=== PATIENT | male | born 1975 | race Caucasian/White ===

== ENCOUNTER 2024-11-22 14:17 | Inpatient (IN) | payer BC, SELFPAY ==
[2024-11-22] VITALS (11 sets, daily range): BP systolic 116–195; BP diastolic 64–121; BMI 42.4
--- NOTE | 2024-11-22 15:04 | HPS.HSE ---
Family Physician
-
Family Physician: Zander Parsons MD
Chief Complaint
-
NSTEMI
History of Present Illness
49-year-old [id number] male presented to [facility] on 11/22/2024 from urgent care center. Patient had been experiencing chest burning intermittently since last Thursday and associated with cough. While at urgent care
center, blood pressure noted to be extremely high and patient referred to [facility] emergency room. Patient ruled in for NSTEMI by troponin (max 261) and IV heparin initiated. Patient developed chest pain during the night and was brought
to the catheterization lab on 11/22 where he was found to have triple-vessel coronary disease with chronic total occlusion of RCA. Patient transferred to [facility] today. Right radial TR band intact. Patient currently pain-free but remains
hypertensive.
Medical History
Past Medical History
Past Medical History: Reports HTN and Other (Class III obesity; gout from HTCZ (last flare 5 months ago))
Past Surgical History: Reports Appendectomy, Orthopedic (R arm surgery) and Other (gastric sleeve 2016)
Social History
Tobacco: Non-smoker
Alcohol: None
Drug: None
Personal:
Living: With Family
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
Family History
Family History: Early CAD (F-CABG in his 40s)
Allergies / Home Medications
Allergies reflects when Allergies were last updated in [employer].
Home Medications with original date entered in [employer]
Allergy/Medication List:
Allergies
Allergy/AdvReac Type Severity Reaction Status Date / Time
Tetanus Vaccines and Toxoid Allergy Intermediate Unknown Verified 11/22/24 15:04
Home Medications
�Medication �Instructions �Recorded
allopurinol 100 mg tablet 100 mg PO DAILY 11/22/24
amlodipine 5 mg tablet 5 mg PO DAILY 11/22/24
valsartan 320 mg tablet 320 mg PO DAILY 11/22/24
Review of Systems
-
History Source: Patient
Constitutional: Reports No Symptoms
EENT: Reports No Symptoms
Respiratory: Reports Cough (non-productive)
Cardiac: Reports Chest Pain
Abdomen/GI: Reports No Symptoms
: Reports No Symptoms
Musculoskeletal: Reports No Symptoms
Skin: Reports No Symptoms
Neurological: Reports No Symptoms
Endocrine: Reports No Symptoms
Hematologic/Lymphatic: Reports No Symptoms
Psych: Reports No Symptoms
Physical Exam
Vital Signs
Vital Signs
Temp Pulse Resp BP Pulse Ox
97.9 F 75 18 160/101 98
11/22/24 14:24 11/22/24 14:31 11/22/24 14:24 11/22/24 14:31 11/22/24 14:38
Physical Exam
General: Obese
HEENT: NormoCephalic, Anicteric, Moist mucous membranes, PERRLA, No Ptosis, Nose Appears Normal and Ears Appear Normal
Respiratory: Clear and Clear to Percussion
Cardiac: S1/S2 and Regular Rhythm
Breast: Deferred by me and N/A
GI: Soft, Non Tender and Normal Bowel Sounds
Rectal: Deferred by Provider
Genito-urinary: Deferred by me
Musculoskeletal: No Clubbing, No Cyanosis and No Edema
Skin: Warm and Dry
Neuro: AO x 3, No Motor Deficits and Nonfocal/grossly intact
Psych: Calm
Laboratory Results
-
A1C 5.9 @ [facility]
Data Reviewed
-
Diagnostic Radiology: Report Reviewed by me and Discussed with Physician
Medical Tests (Nuc Med, Echo, EKG etc): Report Reviewed by me and Discussed with Physician
Lab Data: Labs Reviewed by me and Discussed with Physician
Old Records: Reviewed
Impression/Plan
-
IMPRESSION:
49-year-old male transferred from [facility] on 4/15 due to NSTEMI with triple-vessel disease
PLAN:
Surgeon to review imaging and discuss operative procedure and risk with the patient
Preoperative diagnostics ordered
resume IV Heparin in 6 hours
add Toprol, hold Valsartan
--- NOTE | 2024-11-22 15:39 | CON.CAR ---
Addendum entered and electronically signed by Shantanu Harrell MD 11/22/24 17:11:
Attending addendum: Patient received in transfer for CT surgical evaluation. I spoke with Dr. Berrios and reviewed records from [facility]. PA note reviewed and findings independently confired by me. Briefly, this is a 49 y/o gentleman with a
longstanding history of hypertension who presented to [facility] for evaluation of midepigastric chest discomfort beginning last week. He states that his symptoms reminded him of indigestion. He was admitted to [facility] and
experienced low level elevation in troponin with some chest discomfort. He was referred for coronary angiography. He was found to have occlusion of the right coronary artery, a high-grade stenosis in a very small OM1 and high-grade stenosis in a
terminal obtuse marginal branch which is felt to be the culprit causing symptoms. He was also noted to have moderate to severe LAD and diagonal disease with 100% occlusion of a small first diagonal branch and proximal and mid high-grade stenosis in
the second diagonal branch. He was referred for CT surgical evaluation.
Patient does not check his blood pressures at home but states that they are frequently elevated in doctors offices. He has been on a stable medical regimen for some time. He had been on hydrochlorothiazide in the past and then experienced a gouty
attack. The hydrochlorothiazide was discontinued and he was placed on valsartan and amlodipine instead. He does have a history of gastric bypass surgery in 2016 or 2017 for treatment of morbid obesity and has slowly put weight back on
Upon arrival the patient experienced 5 out of 10 chest tightness which resolved following administration of a single sublingual nitroglycerin tab
Physical exam:
GEN: AAO x 3. No acute distress
HEENT: NC/AT, sclera are anicteric
LUNGS: Clear in the anterolateral lung anderson bilaterally. No wheezing
CV: Regular rate and rhythm. Normal S1/S2. Murmur: None
ABD : Soft, NT, ND, No HSM. Bowel sounds are present.
EXT: No CCE
NEURO: No focal neurologic deficits
RECOMMENDATIONS:
-Restart IV heparin
- IV nitroglycerin for blood pressure and anginal control. Dr. Berrios is aware of recurring symptoms and stated he would stent the circumflex should he experience ongoing discomfort
- Will increase amlodipine to 5 mg p.o. twice daily
- Will change Toprol XL to carvedilol with hold parameters for heart rate and blood pressure
- CT surgery will evaluate
- Bedside commode.
Addendum entered and electronically signed by Eve Cabrera PA-C 11/22/24 16:35:
reporting some chest discomfort/burning into L arm, 12/17. SL nitro ordered. repeat EKG reviewed. nitro paste also ordered. if pain remains refractory, would start nitro gtt. d/w nursing
Original Note:
Consultation
Consultation Request
Date/Time Consultation Performed: 11/22/24
Performing Provider: Eve Cabrera PA-C for Dr. Harrell
Reason for Consultation: CP, needs CABG
Medical History
-
Chief Complaint: Chest burning
History of Present Illness:
Patient is a 49-year-old male with past medical history of hypertension, gout caused by hypertension medication, obesity, history of gastric bypass surgery 2016 or 2017, obstructive sleep apnea, family history of CABG in father in his 50s who noted
intermittent chest burning with some radiation to L arm starting on Thursday afternoon. He reports then on Thursday evening the pain became much more significant and constant. Yesterday morning he went to urgent care for evaluation as he felt maybe he
was developing a cold/bronchitis and blood pressure was noted to be 195/110. He was told to go to the emergency room and presented to [facility]. His troponin was noted to be elevated there consistent with NSTEMI, EKG with lateral ST
changes, and was admitted. He underwent cardiac catheterization this morning which showed occluded RCA, culprit circumflex, and disease in LAD. Transferred to [facility] for CABG evaluation. Presently pain-free.
PMH:
HTN
Gout
Obesity
History of gastric bypass surgery 2016 or 2017
BRIANNA
FH of premature CAD
Past Medical History
Past Medical History: Other (in HPI)
Social History
Tobacco: Non-Smoker
Alcohol: None
Personal:
Living: With Family
Employment: Employed
Family History
Family History: Early CAD
Allergies / Home Medications
Allergy/AdvReac Type Severity Reaction Status Date / Time
Tetanus Vaccines and Toxoid Allergy Intermediate Unknown Verified 11/22/24 15:04
�Medication �Instructions �Recorded �Confirmed �Type
allopurinol 100 mg tablet 100 mg PO DAILY 11/22/24 11/22/24 History
amlodipine 5 mg tablet 5 mg PO DAILY 11/22/24 11/22/24 History
valsartan 320 mg tablet 320 mg PO DAILY 11/22/24 11/22/24 History
Review of Systems
-
History Source: Patient
All other systems: Negative unless noted
Physical Exam
Vital Signs
Temp Pulse Resp BP Pulse Ox
97.9 F 75 18 160/101 98
11/22/24 14:24 11/22/24 14:31 11/22/24 14:24 11/22/24 14:31 11/22/24 14:38
Physical Exam
General: No Apparent Distress, Comfortable and Other (obese)
HEENT: Normocephalic, Anicteric and Moist Mucous Membranes
Respiratory: Clear and Non Labored Respirations
Cardiac: S1/S2 and Regular Rhythm
GI: Soft, Non Tender, Non Distended and Normal Bowel Sounds
Musculoskeletal: No Clubbing, No Cyanosis and No Edema
Skin: Warm and Dry
Neuro: AO x 3
Impression / Plan
-
Primary Brand Designer: initially seen by ATC at [facility]
Assessment:
HTN urgency
NSTEMI with MV CAD by cath at [facility] 11/22/24 including occluded RCA, culprit circ, and LAD disease, undergoing CABG evaluation
Gout
Obesity
History of gastric bypass surgery 2015 or 2017
BRIANNA
FH of premature CAD
ECHO at [facility] 11/22/24: EF 55 to 60%, moderate concentric LVH, RV size mildly dilated, aortic sinuses dilated and ascending aorta dilated
Plan:
- Patient presented to [facility] with hypertensive urgency. Ruled in for NSTEMI and underwent cardiac catheterization 11/22/2024 at [facility] with multivessel coronary disease resulting in transfer to [facility]
Hospital for CABG evaluation
- reviewed all records from [facility] as noted above
- Currently pain-free
- Continue aspirin, IV heparin
- Continue outpatient amlodipine. Will add Toprol given elevated blood pressures. Holding JO ANN/ARB for now with plan for upcoming surgery
- Echocardiogram with preserved EF
- CT surgery to evaluate patient. Workup underway. tentatively planned for 11/24/24
- check CVE. start statin therapy
- will follow perioperatively
- d/w nursing
Data Reviewed
-
EKG: Tracing Personally Visualized and interpreted
Radiology: Report Reviewed by me
Medical Tests (Nuc Med, Echo etc): Report Reviewed by me
Labs: Labs Reviewed by me
Old Records: Reviewed
[2024-11-22] MEDS: LOPRESSOR 5 MG IV (16:27)
[2024-11-22] MEDS: NITROSTAT (SUBLINGUAL) 0.4 MG SL (16:33)
[2024-11-22] MEDS: TYLENOL 650 MG PO ×2 (16:36→20:45)
[2024-11-22] MEDS: LIPITOR 80 MG PO (16:53)
[2024-11-22] MEDS: NITROGLYCERIN PREMIX 250 IV (17:05)
[2024-11-22] MEDS: HEPARIN 25000 UNITS/250 ML IV (17:06)
--- NOTE | 2024-11-22 17:11 | PTCARENOTE ---
Pt c/o of 2/10 chest burning radiating to the left arm at 1625. Pt then c/o of 5/10 chest burning. Medicated with nitro 1/150 SL x 1. 02 applied at 2LNC, ecg done. IV heparin and Nitro started as ordered. Pt chest pain free after 1st nitro.
[2024-11-22 17:45] LABS: Troponin I 0.787 ng/ml
[2024-11-22 17:51] LABS: APTT 30.4 Sec (23.4-35.0)
--- NOTE | 2024-11-22 20:40 | PTCARENOTE ---
Assumed care of pt from prev nsg shift; Pt AAOx3 w/no c/o CP or SOB. Pt does c/o 8-04/19 posterior & anterior headache. Pt given PRN PO Tylenol by prev nsg shift. Pt given an ice pack for comfort & IV Nitro titrated down to 5mcg per protocol since
it's been >2hrs since pt had CP. Pt w/VSS w/HR in the 70's & BP improved from earlier at 133/81. Pt w/R radial site w/dressing C/D/I & w/no signs or symptoms of bleeding or hematoma. Discussed plan of care w/pt & pt is requesting to stop the Nitro
drip due to his 'severe headache' that he reports started when the drip was started. This RN to advise documentation lead Coke Wheeler. Plan of care ongoing.
[2024-11-22] MEDS: COREG 12.5 MG PO (20:44)
[2024-11-22] MEDS: NORVASC 5 MG PO (20:45)
--- NOTE | 2024-11-22 21:20 | PTCARENOTE ---
This RN spoke w/Dr Norton re: pt's headache, that the Tylenol hasn't done much to relieve his pain, & requested something to help pt sleep tonight. Rec'd orders to titrate IV Nitro off & observe pt, & also for PRN PO melatonin at HS. Nitro drip
turned off & pt reported 'some relief' from his headache within 30 mins. Pt w/no addtl needs at this time & plan of care ongoing.
[2024-11-22] MEDS: MELATONIN 5 MG PO (23:22)
[2024-11-23 04:31] VITALS: BP 156/94; BMI 42.8
[2024-11-23] MEDS: TYLENOL 650 MG PO (06:26)
[2024-11-23 06:40] LABS: Hematocrit 41.4 % (39.0-52.0); Hemoglobin 14.9 g/dL (13.0-18.0); Mean Corpuscular Volume 86.3 fL (80.0-94.0); Mean Platelet Volume 9.2 fL (7.4-10.4); Platelet Count 264 10^3/uL (130-400); Red Cell Dist. Width 13.5 % (11.5-14.5); White Blood Cell Count 6.2 10^3/uL (4.8-10.8)
[2024-11-23 06:46] LABS: APTT 35.5 Sec (23.4-35.0); INR 1.03; PT 13.8 Sec (11.4-14.6)
[2024-11-23 07:42] VITALS: BP 146/90
[2024-11-23 07:45] LABS: ALT (SGPT) 60 U/L (0-50); AST (SGOT) 32 U/L (17-59); Albumin 4.4 g/dl (3.5-5.0); Alkaline Phosphatase 91 U/L (38-126); Blood Urea Nitrogen 14 mg/dl (9-20); Calcium 9.4 mg/dl (8.4-10.2); Carbon Dioxide 24 mmol/L (22-30); Chloride 108 mmol/L (98-107); Direct Bilirubin 0.2 mg/dl (0.0-0.4); Estimated Creatinine Clearance > 125 ml/min; Glucose 96 mg/dl (70-99); Potassium 3.8 mmol/L (3.5-5.1); Sodium 143 mmol/L (135-145); Total Bilirubin 1.4 mg/dl (0.2-1.3); Total Protein 6.8 g/dl (6.3-8.2); eGFR > 60.00
--- NOTE | 2024-11-23 08:53 | PTCARENOTE ---
Assumed care. Patient sitting on side of bed. Heparin gtt infusing. VSS, patient sent to [facility] on a stretcher
[2024-11-23] MEDS: COREG 12.5 MG PO ×2 (09:37→19:39)
[2024-11-23] MEDS: LOW STRENGTH ASPIRIN 81 MG PO (09:37)
[2024-11-23] MEDS: PROTONIX 40 MG PO (09:37)
[2024-11-23] MEDS: NORVASC 5 MG PO ×2 (09:37→19:39)
[2024-11-23 10:22] LABS: Glycohemoglobin (HgbA1c) 5.7 % (4.0-5.6)
[2024-11-23 10:57] VITALS: BP 116/65
--- NOTE | 2024-11-23 11:42 | W.PN.CARDCBS ---
Addendum entered and electronically signed by Travis Ram MD 11/23/24 12:49:
I saw and examined the patient.
The Facility Security Officer's note was reviewed and I agree with the note.
Comment:
GEN: No distress, awake, Ox3
HEENT: supple, anicteric, mmm
LUNGS: CTA, no wheezes/rales
CV: Reg, S1/S2, no murmur
ABD: soft, BS+, NT/ND
EXT: No edema
NEURO: Gross non-focal
SKIN: No rash
Plan:
Overall feels well. Plan for CABG in AM.
Continue aspirin, heparin, Coreg, Norvasc, aspirin, and atorvastatin.
Creatinine stable at 0.9
Original Note:
Today's Communication / Plan
-
Planned for CABG in a.m.
Continue aspirin, IV heparin, Norvasc, beta-lissa, Lipitor
Impression / Plan
-
Primary Manager Of Regulatory Affairs: initially seen by ATC at [facility]
Assessment:
HTN urgency
NSTEMI with MV CAD by cath at [facility] 11/22/24 including occluded RCA, culprit circ, and LAD disease, undergoing CABG evaluation
Gout
Obesity
History of gastric bypass surgery 2015 or 2017
BRIANNA
FH of premature CAD
ECHO at [facility] 11/22/24: EF 55 to 60%, moderate concentric LVH, RV size mildly dilated, aortic sinuses dilated and ascending aorta dilated
Plan:
- Patient presented to [facility] with hypertensive urgency. Ruled in for NSTEMI and underwent cardiac catheterization 11/22/2024 at [facility] with multivessel coronary disease resulting in transfer to [facility]
Hospital for CABG evaluation
- He had some chest discomfort yesterday evening and was started on IV nitro drip, however then was noted significant headache and IV nitro was stopped with improvement. He denies recurrence of chest pain.
- Continue aspirin, IV heparin
- Tentatively planned for CABG in AM. Continue workup per CT surgery
- Echocardiogram showed preserved EF
- Blood pressures remain elevated. Continue amlodipine at higher dose of 5 mg twice daily. On Toprol 25 mg twice daily, stopped in preparation for surgery in a.m. Holding JO ANN/ARB for now with plan for upcoming surgery. IV Lopressor as needed
order in place. Will need up titration of antihypertensive regimen postoperatively
- High intensity lipid-lowering therapy started this admission
- will follow perioperatively
-Discussed with patient and at bedside
- d/w nursing
Progress Note - Manager Of Regulatory Affairs
Subjective
Date of Service: November 23, 2024
No chest pain. Significant headache with IV nitro, improved with stopping
Objective
Labs:
11/23/24 06:19
11/23/24 06:19
Labs
Hgb 14.9 g/dL (13.0-18.0) 11/23/24 06:19
Hct 41.4 % (39.0-52.0) 11/23/24 06:19
Plt Count 264 10^3/uL (130-400) 11/23/24 06:19
PT 13.8 Sec (11.4-14.6) 11/23/24 06:19
INR 1.03 11/23/24 06:19
APTT 35.5 Sec (23.4-35.0) H 11/23/24 06:19
Sodium 143 mmol/L (135-145) 11/23/24 06:19
Potassium 3.8 mmol/L (3.5-5.1) 11/23/24 06:19
BUN 14 mg/dl (9-20) 11/23/24 06:19
Creatinine 0.9 mg/dL (0.7-1.3) 11/23/24 06:19
Glucose 96 mg/dl (70-99) 11/23/24 06:19
Troponins
11/22/24 11/23/24
17:03 06:19
Troponin I 0.787 H* 0.800 H*
Vital Signs and I&O:
Vital Signs
Temp Pulse Resp BP Pulse Ox
97.6 F 89 18 146/90 94
11/23/24 10:57 11/23/24 09:15 11/23/24 10:57 11/23/24 07:42 11/23/24 10:57
Vital Signs
Temp Pulse Resp BP Pulse Ox
97.6 F 89 18 146/90 94
11/23/24 10:57 11/23/24 09:15 11/23/24 10:57 11/23/24 07:42 11/23/24 10:57
Physical Exam
Physical Exam
GEN: No distress, awake, alert, oriented x3. Obese
HEENT: supple, anicteric, mmm, EOMI
LUNGS: CTA bilaterally, no wheezes/rales
CV: Reg, S1/S2, no murmur
ABD: soft, BS+, NT/ND
EXT: No cyanosis, clubbing, edema
NEURO: Gross non-focal
SKIN: Warm, pink, dry. No rash. Right wrist site clean dry and intact
[2024-11-23 14:02] LABS: APTT 38.1 Sec (23.4-35.0)
[2024-11-23 15:10] VITALS: BP 160/94
--- NOTE | 2024-11-23 15:30 | PTCARENOTE ---
Assumed care this morning. Patient headache resolved. Heparin infusing per MAR. He denies chest pain, NSR, VSS. Walking in the room and bustos.
--- NOTE | 2024-11-23 15:38 | W.PN.UPDATE ---
Update Note
Progress Note Update
STS RISK SCORE
Procedure Type:�Isolated CABG
Perioperative Outcome Estimate %
Operative Mortality 0.969%
Morbidity & Mortality 6.64%
Stroke 0.527%
Renal Failure 1.06%
Reoperation 1.74%
Prolonged Ventilation 3.76%
Deep Sternal Wound Infection 0.25%
Long Hospital Stay (>14 days) 2.13%
Short Hospital Stay (<6 days)* 56%
Clinical Summary
Planned Surgery: Isolated CABG, Elective, First cardiovascular surgery
Demographics: 49 year old, White, male, 141.8kg, 183cm, BMI: 42.3 kg/m�
Lab Values: Creatinine: 0.9 mg/dL, Hematocrit: 41.9%, WBC Count: 6.2 10�/�L, Platelet Count: 984114 cells/�L
Substance Abuse: Never smoker
Risk Factors / Comorbidities: Hypertension, Family Hx of CAD
Cardiac Status: Acute heart failure, NYHA Class II, Ejection Fraction = 40%
Coronary Artery Disease: 3 vessels diseased, Non-ST Elevation PA, PA: 1 to 7 Days
Valve Disease: Mild MR
--- NOTE | 2024-11-23 16:21 | CM ---
spoke to pt in room, he is prev indep, lives with his and son/daughter (), in a 2 story home with 2 steps to enter. he denies any dme's. we discussed preop CABG teaching including sternal and driving restrictions. he is agreeable to a f/u
visit from the ct transitional nurse after dc. he has the ct surgical book. plan is for cabg tomorrow am.
[2024-11-23] MEDS: LIPITOR 80 MG PO (16:58)
[2024-11-23 18:51] VITALS: BP 153/81
[2024-11-23 21:36] LABS: Urine Albumin 2+ (Neg - Trace); Urine Bilirubin Negative (Negative); Urine Character Clear (Clear); Urine Color Yellow; Urine Glucose Negative (Negative); Urine Ketone Negative (Negative); Urine Leukocyte Negative (Negative); Urine Nitrite Negative (Negative); Urine Occult Blood 1+ (Negative); Urine Urobilinogen 1+ (Neg - 1+)
[2024-11-23 22:02] LABS: Urine Bacteria Few (Negative); Urine Mucus Moderate; Urine Red Blood Cell 0-2 /HPF (0-2); Urine White Cell 0-2 /HPF (0-5)
[2024-11-23 22:55] VITALS: BP 141/94
[2024-11-23] MEDS: MELATONIN 5 MG PO (23:18)
[2024-11-23 23:26] LABS: APTT 32.4 Sec (23.4-35.0)
[2024-11-24] VITALS (22 sets, daily range): BP systolic 75–169; BP diastolic 58–108; BMI 42.3
--- NOTE | 2024-11-24 | PTCARENOTE ---
Pt rec'd at change of shift ambulating in hallway. Pt prepped for CVOR. clipped and showered with 4 % chlorhexidine. ua sent.
Pt is pain free. Sinus on telemetry.
[2024-11-24] MEDS: HEPARIN 25000 UNITS/250 ML IV (04:00)
[2024-11-24 06:18] LABS: APTT 55.8 Sec (23.4-35.0)
[2024-11-24] MEDS: LOPRESSOR 25 MG PO (06:18)
[2024-11-24] MEDS: BACTROBAN 2% OINTMENT 1 APPLIC NASAL ×2 (06:18→21:10)
[2024-11-24] MEDS: PROTONIX 40 MG PO (06:18)
[2024-11-24] MEDS: MAGNESIUM OXIDE 500 MG PO (06:18)
[2024-11-24 06:24] LABS: HDL Cholesterol 42 mg/dl; LDL Cholesterol, Calculated 72 mg/dl; Total Cholesterol 144 mg/dl (50-199); Triglyceride 154 mg/dl (10-149); Very Low Density Lipoprotein 30 mg/dl (0-30)
--- NOTE | 2024-11-24 06:37 | PTCARENOTE ---
Pt anxious this morning. Prepped with 2nd shower using chlorhexidine soap and CHG wipes. B/p elevated . am preop meds given. spouse now at bedside.
--- NOTE | 2024-11-24 06:57 | W.CVOR.SURPR ---
CVOR Surgeon Immed Pre Op
-
I have examined this patient prior to performance of the scheduled procedure.
The patient's condition is unchanged from the time of the dictated/written History and
Physical and the patient is able to undergo the scheduled procedure.
[2024-11-24 07:11] LABS: Hematocrit 42.3 % (39.0-52.0); Hemoglobin 15.3 g/dL (13.0-18.0); Mean Corp Hgb Conc. 36.2 g/dL (33.0-37.0); Mean Corpuscular Hgb 30.8 pg (27.0-31.0); Mean Corpuscular Volume 85.1 fL (80.0-94.0); Platelet Count 258 10^3/uL (130-400); Red Blood Cell Count 4.97 10^6/uL (4.70-6.10); Red Cell Dist. Width 13.6 % (11.5-14.5); White Blood Cell Count 5.7 10^3/uL (4.8-10.8)
--- NOTE | 2024-11-24 07:31 | PTCARENOTE ---
Patient sent to OR. Voided pre-op. Heparin stopped credit card control clerk to OR
[2024-11-24 08:21] LABS: ACT+ - POC 101 Seconds (82-134)
[2024-11-24 09:15] LABS: Urine Albumin 2+ (Neg - Trace); Urine Bilirubin Negative (Negative); Urine Character Clear (Clear); Urine Color Yellow; Urine Glucose Negative (Negative); Urine Ketone Negative (Negative); Urine Leukocyte Negative (Negative); Urine Nitrite Negative (Negative); Urine Occult Blood 3+ (Negative); Urine Specific Gravity 1.015 (<1.030); Urine Urobilinogen Negative (Neg - 1+)
[2024-11-24 09:17] LABS: Urine Bacteria Few (Negative); Urine Squamous Cell 0-2 /LPF (Few); Urine White Cell 0-2 /HPF (0-5)
[2024-11-24 10:08] LABS: ACT+ - POC 474 Seconds (82-134)
[2024-11-24 10:20] LABS: B.E. - POC -1.6 mmol/L; Glucose - POC 100 mg/dl (70-99); HCO3 - POC 24 mmol/L (21-28); Hematocrit - POC 40 % PCV (42-52); Hemodilution- POC No; Hemoglobin Calculated - POC 13.5; Ionized Calcium - POC 1.17 mmol/L (1.15-1.33); Lactate - POC 0.66 mmol/L (0.36-0.75); O2 Saturation %Calculated-POC 97.6 % (94-98); PCO2 - POC 42 mmHg (35-48); PO2 - POC 102 mmHg (83-108); Potassium - POC 3.4 mmol/L (3.5-5.1); Sodium - POC 148 mmol/L (136-145); Specimen Type - POC Arterial; pH - POC 7.37 (7.35-7.45)
[2024-11-24 10:37] LABS: ACT+ - POC 630 Seconds (82-134)
[2024-11-24 11:02] LABS: ACT+ - POC 559 Seconds (82-134)
[2024-11-24 11:13] LABS: B.E. - POC 5.1 mmol/L; Glucose - POC 111 mg/dl (70-99); HCO3 - POC 32 mmol/L (21-28); Hematocrit - POC 35 % PCV (42-52); Hemodilution- POC Yes; Hemoglobin Calculated - POC 11.7; Ionized Calcium - POC 1.01 mmol/L (1.15-1.33); Lactate - POC < 0.30 mmol/L (0.36-0.75); PCO2 - POC 55 mmHg (35-48); PO2 - POC 381 mmHg (83-108); Potassium - POC 4.3 mmol/L (3.5-5.1); Sodium - POC 144 mmol/L (136-145); Specimen Type - POC Arterial; pH - POC 7.37 (7.35-7.45)
[2024-11-24 11:31] LABS: ACT+ - POC 492 Seconds (82-134)
[2024-11-24 11:48] LABS: ACT+ - POC 429 Seconds (82-134)
--- NOTE | 2024-11-24 12:01 | CM ---
Chart reviewed. Patient is in the OR today. Patient is independent of ADLS, lives with his in a 2 STH, 2 EB, 0 DME. Plan is for the patient to return home with CT Transitional RN. CM to follow
--- NOTE | 2024-11-24 12:02 | CM ---
Addendum entered by Lyly Bazan RN 11/24/24 12:04:
Plan is for the patient to return home with CT Transitional RN
Original Note:
Chart reviewed. Patient is Independent of ADLS, lives with his in a split level house, 1 EB, 6 steps betwee, 0 DME. Plan is for the patient to return home. CM to follow
[2024-11-24 12:03] LABS: ACT+ - POC 104 Seconds (82-134)
[2024-11-24 12:04] LABS: B.E. - POC -1.9 mmol/L; Glucose - POC 139 mg/dl (70-99); HCO3 - POC 24 mmol/L (21-28); Hematocrit - POC 35 % PCV (42-52); Hemodilution- POC Yes; Hemoglobin Calculated - POC 11.8; Ionized Calcium - POC 1.37 mmol/L (1.15-1.33); Lactate - POC 0.95 mmol/L (0.36-0.75); O2 Saturation %Calculated-POC 94.4 % (94-98); PCO2 - POC 46 mmHg (35-48); PO2 - POC 78 mmHg (83-108); Potassium - POC 4.2 mmol/L (3.5-5.1); Sodium - POC 145 mmol/L (136-145); Specimen Type - POC Arterial; pH - POC 7.33 (7.35-7.45)
[2024-11-24 12:11] LABS: B.E. - POC 3.7 mmol/L; Glucose - POC 136 mg/dl (70-99); HCO3 - POC 30 mmol/L (21-28); Hematocrit - POC 35 % PCV (42-52); Hemodilution- POC Yes; Ionized Calcium - POC 1.14 mmol/L (1.15-1.33); Lactate - POC < 0.30 mmol/L (0.36-0.75); O2 Saturation %Calculated-POC 99.9 % (94-98); PCO2 - POC 52 mmHg (35-48); PO2 - POC 328 mmHg (83-108); Potassium - POC 4.9 mmol/L (3.5-5.1); Sodium - POC 143 mmol/L (136-145); Specimen Type - POC Arterial; pH - POC 7.37 (7.35-7.45)
[2024-11-24 12:11] LABS: Glucose - POC 155 mg/dl (70-99); HCO3 - POC 28 mmol/L (21-28); Hematocrit - POC 35 % PCV (42-52); Hemodilution- POC Yes; Ionized Calcium - POC 1.14 mmol/L (1.15-1.33); Lactate - POC < 0.30 mmol/L (0.36-0.75); PCO2 - POC 46 mmHg (35-48); PO2 - POC 379 mmHg (83-108); Sodium - POC 144 mmol/L (136-145); Specimen Type - POC Arterial; pH - POC 7.38 (7.35-7.45)
--- NOTE | 2024-11-24 12:50 | CON.INTV ---
Consultation
Consultation Request
Date/Time Consultation Requested: 11/24/2024 - 121
Date/Time Consultation Performed: 11/24/2024 - 1236
Requesting Provider: GERMAN Vargas
Performing Provider: Dr. Torres
Reason for Consultation: s/p CABG
Medical History
-
Chief Complaint: Elective CABG
History of Present Illness:
49-year-old male with a past medical history of hypertension, gout and obesity who presented with burning chest discomfort. He initially had gone to [facility] on 11/22/2024 after being sent there from an urgent care center. He was
experiencing intermittent chest burning discomfort since last Thursday (11/18) + a cough. His pressure was extremely elevated at urgent care and then he was referred to [facility] where he was ruled in for an NSTEMI (troponin max 261), and IV heparin was
started. During that evening, he developed chest pain and underwent a left heart catheterization which showed triple-vessel CAD with MANAGER MASSAGE DEPARTMENT of the RCA. He was then transferred to [facility] for further evaluation of a CABG. Patient was
admitted to the CT surgery team. Surgical revascularization was discussed including its risks and benefits and the patient agreed to this procedure. Today he underwent a CABG x 4 on pump. There were no complications. Intraoperative JOHN showed
preserved LVEF at 55% with no regional WMA, with mild MR with a central jet likely due to annular dilation. Patient was transferred to the CVICU for further care and Cardiology Coordinator services consulted for additional management/recommendations.
When I saw the patient, he was resting in bed, in no acute distress on SIMV at 18/600/80%/7, with PIP 26 cmH2O, VTe 583 mL and breathing at 18 breaths/min. Currently on insulin drip at 6 units/hr, Precedex at 0.5 mcg/kg/hr and Levophed at 2
mcg/min. Heart rate 67, BP via A-line: 93/58, BP via NIBP: 98/73, and SpO2 92%. He has a mediastinal chest tube x 1 and bilateral pleural chest tubes in place.
PMHx: Hypertension, gout
PSHx: Appendectomy, right arm surgery, gastric sleeve (2016)
Past Medical History
Past Medical History: Other (Above as per HPI)
Past Surgical History: Other (Above as per HPI)
Social History
Tobacco: Non-smoker
Alcohol: None
Drug: None
Personal:
Living: With Family
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
Family History
Family History: Early CAD (Father who had a CABG in his 40s)
Allergies / Home Medications
Allergies
Allergy/AdvReac Type Severity Reaction Status Date / Time
Tetanus Vaccines and Toxoid Allergy flu-like Verified 11/22/24 16:40
symptoms
Home Medications
�Medication �Instructions �Recorded �Confirmed �Last Taken �Type
allopurinol 100 mg tablet 100 mg PO DAILY Gout 11/22/24 11/22/24 11/22/24 History
amlodipine 5 mg tablet 5 mg PO DAILY Blood Pressure 11/22/24 11/22/24 11/22/24 History
valsartan 320 mg tablet 320 mg PO DAILY Blood Pressure 11/22/24 11/22/24 11/22/24 History
Review of Systems
-
Unable to Obtain full review of systems at this time due to: Patient Intubation
Vitals / Labs / Diagnostic Testing
Vital Signs
Temp Pulse Resp BP Pulse Ox
97.6 F 83 20 169/108 94
11/24/24 05:42 11/24/24 06:30 11/24/24 05:42 11/24/24 05:44 11/24/24 05:42
Laboratory Results
11/23/24 11/23/24 11/23/24
13:43 21:16 23:05
APTT 38.1 H Cancelled 32.4
11/24/24
05:54
APTT 55.8 H
Diagnostic Testing:
Physical Exam
-
HEENT: Normocephalic, Anicteric and Other (ETT in place)
Cardiovascular: S1/S2, Rub (Positive) and Peripheral Edema (negative)
Respiratory: Wheeze (negative), Rales (negative), Rhonchi (negative), Accessory Resp Muscle Use (negative), Other (Mechanical breath sounds heard bilaterally) and Other (Chest tubes: mediastinal chest tube x 1 and bilateral pleural chest tubes)
GI: Soft, Non Distended, Non Tender and Normal Bowel Sounds
Neurology: Tremors (negative) and Other (Sedated)
Skin: Warm and Dry
General: Respiratory Distress (negative), Comfortable, Fever (negative) and Chills (negative)
Assessment
-
Assessment: 49-year-old male with a past medical history of hypertension, gout and obesity who presented with burning chest discomfort. He initially had gone to [facility] on 11/22/2024 after being sent there from an urgent care center. He
was experiencing intermittent chest burning discomfort since last Thursday (11/18) + a cough. His pressure was extremely elevated at urgent care and then he was referred to [facility] where he was ruled in for an NSTEMI (troponin max 261), and IV heparin
was started. During that evening, he developed chest pain and underwent a left heart catheterization which showed triple-vessel CAD with MANAGER MASSAGE DEPARTMENT of the RCA. He was then transferred to [facility] for further evaluation of a CABG. Patient was
admitted to the CT surgery team. Surgical revascularization was discussed including its risks and benefits and the patient agreed to this procedure. Today he underwent a CABG x 4 on pump. There were no complications. Intraoperative JOHN showed
preserved LVEF at 55% with no regional WMA, with mild MR with a central jet likely due to annular dilation. Patient was transferred to the CVICU for further care and Cardiology Coordinator services consulted for additional management/recommendations.
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
Impression:
#NSTEMI with multivessel CAD s/p CABG x 4 off-pump � POD #0)
#Prediabetes (HbA1C: 5.7 on 11/22/2024) with hyperglycemia
#Mild MR (per JOHN from 11/24/2024)
#Severe concentric LVH (per JOHN from 11/24/2024)
#Hypertension with recent hypertensive urgency
#Gout
#History of gastric bypass surgery
#History of BRIANNA
#Family history of premature CAD
Plan:
Ventilator settings reviewed
FiO2 will be weaned to maintain SpO2 >90-94%
Minute ventilation will be adjusted
Arterial blood gases will be monitored
Spontaneous breathing trial will be attempted with hopeful extubation after anesthesia/sedation wear off
prn nebulized bronchodilators - not currently bronchospastic
Pulmonary artery catheter parameters will be followed
Pressors/antihypertensive/inotropes/diuretics will be provided as needed
Maintain MAP>65
Replete electrolytes with K>4, Mg>2
Monitor chest tube output (mediastinal chest tube x 1 + bilateral pleural chest tubes)
Monitor hemoglobin
Monitor platelet count and coags
Transfuse blood products as needed to maintain Hb>8g/dL, plt>50k (given post-operative status)
CT surgery managing chest tubes
Monitor blood sugar to maintain euglycemia with goal BG 110-140
Insulin drip per protocol
Aspiration precautions
VAP prevention protocol
DVT prophylaxis
Early nutrition
Early mobilization
Critical care statement: A total of 41 minutes of critical care time was provided for this patient today. This includes management of ventilator, spontaneous breathing trial, arterial blood gases, pressors, of unstable vital signs, evaluation of the
patient at bedside, reviewing the patient's pertinent medical records including radiographs, microbiology, laboratory evaluations, and discussion with primary team and critical care nursing.
Data:
Intraoperative JOHN 11/24/2024:
Overall LVEF is approximately 55% with no RWMA.
Severe concentric left ventricular hypertrophy.
Severely dilated left atrium.
Moderately dilated right atrium.
Mild mitral regurgitation.
MR jet is central likely due to annular dilation.
Mid ascending aorta is dilated measuring 4.2 cm at the level of the RPA.
[2024-11-24] MEDS: NEURONTIN PO ×2 (12:52→15:08)
[2024-11-24] MEDS: LOW STRENGTH ASPIRIN PO (12:52)
[2024-11-24] MEDS: NOVOLOG FLEXPEN SC ×2 (12:52→15:08)
[2024-11-24] MEDS: PROTONIX PO (12:52)
[2024-11-24] MEDS: COREG PO (12:56)
[2024-11-24] MEDS: NORVASC PO (12:56)
--- NOTE | 2024-11-24 13:09 | W.PN.CT.SURG ---
CT Surgery Operative Note
-
Pre-op Diagnosis: nstemi
cad
hytpn
Post-op Diagnosis: Same
Procedure: Cabg x 4, On pump
Singh- diag/lad
Stephanie- om
Ao-svg- pda
Revh
Rigid sternal fixation
Primary Surgeon: Gilberto
Assisting Surgeons: JESSICA Esqueda....leg and chest
Specimen: None
Cultures: None
Complications / Blood Loss: None
Findings: Carroll with preserved EF pre and post op
Small adelina, not clipped
good conduit
diffuse disease throughout the coronary tree
--- NOTE | 2024-11-24 13:15 | PTCARENOTE ---
Pt received from CVOR at 1315. Pt intubated and sedated on precedex gtt. PERRLA 3mm brisk. Intubated with 8.0 ETT 24cm at the lip. POX 88%, CT TAPPING MACHINE OPERATOR and RT at bedside. SIMV 100% 14 600 5. Right and left pleural chest tubes y-sited to 1 atrium to -20cm
suction draining red fluid. Mediastinal chest tube to -20cm suction draining red fluid. No air leaks, tidaling, crepitus noted. NSR on tele with rates in the 60s. BP supported with levophed @2mcg/min. Bilateral radial and DP pulses palpable. No
edema noted. CVP 14. +Rub. Epicardial v-wire backed up to , no pacing noted. Abdomen soft, round, obese, nontender. Hypoactive BS. Knox catheter intact draining adequate amounts of clear yellow urine. Sternal incision approximated with skin
glue, FARM OWNER OPERATOR. Chest tube dressing CDI. Right groin puncture site approximated, SHERICE. Right SVG harvest site approximated with skin glue, JO ANN CDI. Right IJ cordis with slick intact. Left radial mary intact. All lines flushed, leveled, zeroed. Right hand
20g PIV intact. Insulin infusing per glycemic protocol. Post op EKG, labs, and CXR completed.
[2024-11-24] MEDS: VENTOLIN NEBULES 2.5 MG INH (13:19)
[2024-11-24 13:31] LABS: Glucose - Point of Care 184 mg/dl (70-99)
[2024-11-24 13:33] LABS: B.E. -2.9 mmol/L; HCO3 23.7 mmol/L (21-28); Ionized Calcium 1.25 mMOL/L (1.15-1.33); O2 Saturation % 95.2 % (94-98); PCO2 47 mmHg (35-48); PO2 73 mmHg (83-108); Potassium 4.6 mMOL/L (3.5-5.1); Sodium 138 mMOL/L (136-145); pH 7.31 (7.35-7.45)
[2024-11-24] MEDS: NSS 500 IV (13:36)
[2024-11-24] MEDS: ANCEF 15 MG IV (13:36)
[2024-11-24] MEDS: ANCEF 10 IV (13:36)
[2024-11-24 13:43] LABS: Hematocrit 38.4 % (39.0-52.0); Hemoglobin 13.7 g/dL (13.0-18.0); Platelet Count 321 10^3/uL (130-400)
[2024-11-24 13:45] LABS: INR 1.19; PT 15.7 Sec (11.4-14.6)
[2024-11-24 13:46] LABS: APTT 28.5 Sec (23.4-35.0)
[2024-11-24 13:48] LABS: Blood Urea Nitrogen 15 mg/dl (9-20); Estimated Creatinine Clearance 107 ml/min; Glucose 176 mg/dl (70-99); Magnesium 2.6 mg/dl (1.6-2.3)
[2024-11-24 14:13] LABS: Glucose - Point of Care 146 mg/dl (70-99)
--- NOTE | 2024-11-24 14:40 | W.PN.CARDCBS ---
Addendum entered and electronically signed by Domenico Torres MD 11/24/24 15:09:
I saw and examined the patient.
The Personal Secretary's note was reviewed and I agree with the note.
Comment: Briefly, 49-year-old man presenting with NSTEMI to [facility] found to have multivessel CAD and subsequently underwent CABG x 4 earlier today
Postoperatively he remains intubated and sedated in the CVICU requiring low level Levophed for pressor support
Maintaining sinus rhythm on telemetry
Filling pressures are reasonable based on invasive hemodynamics
Agree with medical management aspirin/Plavix/high intensity statin/beta-lissa
Eventual cardiac rehab and outpatient follow-up with ATC
Original Note:
Today's Communication / Plan
-
continue post op care
Impression / Plan
-
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
Assessment:
HTN urgency
NSTEMI with MV CAD by cath at [facility] 11/22/24 including occluded RCA, culprit circ, and LAD disease
s/p CABG x4 CHESTER-diag/LAD, DUTCH-OM, Ao-SVG-PDA with rigid sternal fixation 11/24/24
Gout
Obesity
History of gastric bypass surgery 2016 or 2017
BRIANNA
FH of premature CAD
ECHO at [facility] 11/22/24: EF 55 to 60%, moderate concentric LVH, RV size mildly dilated, aortic sinuses dilated and ascending aorta dilated
Plan:
- Patient presented to [facility]/ with hypertensive urgency. Ruled in for NSTEMI and underwent cardiac catheterization 11/22/2024 at [facility] with multivessel coronary disease resulting in transfer to [facility]
Hospital for CABG evaluation
-s/p CABG x4 CHESTER-diag/LAD, DUTCH-OM, Ao-SVG-PDA with rigid sternal fixation 11/24/24
-intubated, sedated. slowly weaning vent due to oxygenation
-on levo @2, insulin @3.5
-plan for asa, plavix given NSTEMI presentation. hgb 13.7
-EKG NSR
-BPs were elevated preop, norvasc and toprol were uptitrated. follow post op BP trends
-LDL 72. continue high intensity statin
-continue post op care
-d/w nursing
Progress Note - Cook Fish Eggs
Subjective
Date of Service: November 24, 2024
intubated, sedated
Objective
Labs:
11/24/24 13:22
Labs
Hgb 13.7 g/dL (13.0-18.0) 11/24/24 13:22
Hct 38.4 % (39.0-52.0) L 11/24/24 13:22
Plt Count 321 10^3/uL (130-400) D 11/24/24 13:22
PT 15.7 Sec (11.4-14.6) H 11/24/24 13:22
INR 1.19 11/24/24 13:22
APTT 28.5 Sec (23.4-35.0) 11/24/24 13:22
Sodium 143 mmol/L (135-145) 11/23/24 06:19
Potassium 3.8 mmol/L (3.5-5.1) 11/23/24 06:19
BUN 15 mg/dl (9-20) 11/24/24 13:22
Creatinine 1.2 mg/dL (0.7-1.3) 11/24/24 13:22
Glucose 176 mg/dl (70-99) H 11/24/24 13:22
Troponins
11/22/24 11/23/24
17:03 06:19
Troponin I 0.787 H* 0.800 H*
Vital Signs and I&O:
Vital Signs
Temp Pulse Resp BP Pulse Ox
99.1 F 67 18 98/73 93
11/24/24 14:00 11/24/24 14:00 11/24/24 14:00 11/24/24 14:00 11/24/24 14:30
Vital Signs
Temp Pulse Resp BP Pulse Ox
99.1 F 67 18 98/73 93
11/24/24 14:00 11/24/24 14:00 11/24/24 14:00 11/24/24 14:00 11/24/24 14:30
Intake & Output
11/22/24 11/23/24 11/24/24 11/25/24
07:59 07:59 07:59 07:59
Intake Total 924 / 924 100.1 / 100.1
Output Total 275 / 275
Balance 924 / 924 -174.9 / -174.9
Physical Exam
Physical Exam
GEN: No distress, intubated, sedated
HEENT: supple, mmm
LUNGS: CTA B/L, no wheezes
CV: Reg, S1/S2, no murmur, + rub
ABD: soft, BS+, NT/ND
EXT: No cyanosis, clubbing, edema
NEURO: Gross non-focal
SKIN: Warm, pink, dry. No rash. Sternotomy incision c/d/i. CTs in place
[2024-11-24 14:59] LABS: Glucose - Point of Care 144 mg/dl (70-99)
[2024-11-24] MEDS: TYLENOL PO (15:08)
[2024-11-24] MEDS: PACERONE PO (15:08)
--- NOTE | 2024-11-24 16:00 | PTCARENOTE ---
Pt awakens easily to voice. Shakes head appropriately yes/no. Able to squeeze hands and wiggle toes when asked. NSR on tele with rates in the 70s. BP supported with 2mcg levophed. Surgical incisions stable. CT output WNL. Knox draining adequate UO.
All lines remain intact. POX 92% on SIMV 40% 18 600 7.
--- NOTE | 2024-11-24 16:10 | PTCARENOTE ---
RT at bedside, placed pt on cpap trial. POX 91%. Pt tolerating.
[2024-11-24 16:37] LABS: Glucose - Point of Care 122 mg/dl (70-99)
[2024-11-24 16:45] LABS: B.E. - POC -1.3 mmol/L; Blood Urea Nitrogen - POC 18 mg/dl (3-120); Chloride - POC 113 mmol/L (96-111); Creatinine - POC 1.24 mg/dl (0.3-1.0); Glucose - POC 128 mg/dl (70-99); HCO3 - POC 25 mmol/L (21-28); Hematocrit - POC 40 % PCV (42-52); Hemodilution- POC Yes; Hemoglobin Calculated - POC 13.7; Ionized Calcium - POC 1.24 mmol/L (1.15-1.33); Lactate - POC 1.17 mmol/L (0.36-0.75); O2 Saturation %Calculated-POC 91.7 % (94-98); PCO2 - POC 44 mmHg (35-48); PO2 - POC 66 mmHg (83-108); Potassium - POC 4.5 mmol/L (3.5-5.1); Sodium - POC 145 mmol/L (136-145); Specimen Type - POC Arterial; pH - POC 7.35 (7.35-7.45)
--- NOTE | 2024-11-24 16:45 | PTCARENOTE ---
EPOC ABG ran by CT AIR SUPPORT OPERATIONS OPERATOR. orders to extubate. RT at bedside. Pt extubated to 6L NC. POX 93%. Pt drowsy but oriented x4. Rates sternal pain 4/10, states it is tolerable. Denies nausea.
[2024-11-24 16:55] LABS: Hematocrit 38.7 % (39.0-52.0); Hemoglobin 14.3 g/dL (13.0-18.0); Platelet Count 333 10^3/uL (130-400)
[2024-11-24 17:07] LABS: Glucose - Point of Care 111 mg/dl (70-99)
[2024-11-24] MEDS: ROXICODONE 5 MG PO ×2 (17:10→23:42)
[2024-11-24] MEDS: LOW STRENGTH ASPIRIN 81 MG PO (17:10)
[2024-11-24] MEDS: LIPITOR 80 MG PO (18:04)
[2024-11-24 18:57] LABS: Glucose - Point of Care 114 mg/dl (70-99)
[2024-11-24] MEDS: DILAUDID 0.25 MG IV (19:26)
[2024-11-24] MEDS: ANCEF 5 IV (20:27)
[2024-11-24] MEDS: TORADOL 15 MG IV (20:27)
--- NOTE | 2024-11-24 20:30 | PTCARENOTE ---
Assumed care of patient at 1900. Patient found resting in bed with spouse at bedside at time of assessment. Patient is AOx4, follows commands appropriately, moves all extremities. Patient noticeably drowsy. Lung sounds are diminished throughout,
saO2 91-92% on 6L via NC, CTx3: R/L pleural to one atrium and medx1 to another atrium draining red sanguineous. Heart sounds are audible, there is a rub present on auscultation, pulses are palpable, no edema is present, patient has vwires present
with settings at 30/10/1. Hypoactive BS present throughout all four quadrants, and round obese abdomen. There is a corley catheter draining clear yellow urine. Patient has sternal incision approx with surg adhesive TIME STAMP ASSEMBLER, R groin puncture approx with
surg adhesive SHERICE, and RLE incision with JO ANN wrap CDI. Patient has R IJ cordis with slic both receiving KVO, L radial Mireille and R hand 20G PIV receiving insulin gtt. Patient c/o pain in the sternum given dilaudid 0.25. Temporary relief however pain
quickly returned. Notified CT PA one time orders for toradol received. VSS. Call tucker within reach.
[2024-11-24 21:08] LABS: Glucose - Point of Care 118 mg/dl (70-99)
[2024-11-24] MEDS: PACERONE 200 MG PO (21:09)
[2024-11-24] MEDS: MUCINEX 600 MG PO (21:09)
[2024-11-24] MEDS: NEURONTIN 100 MG PO (21:09)
[2024-11-24] MEDS: TYLENOL 1000 MG PO (21:09)
[2024-11-24] MEDS: SENOKOT-S 1 TABLET PO (21:10)
[2024-11-24 21:31] LABS: B.E. -1.8 mmol/L; HCO3 23.7 mmol/L (21-28); Ionized Calcium 1.19 mMOL/L (1.15-1.33); O2 Saturation % 96.3 % (94-98); PCO2 42 mmHg (35-48); PO2 75 mmHg (83-108); Potassium 4.3 mMOL/L (3.5-5.1); pH 7.36 (7.35-7.45)
[2024-11-24 22:06] LABS: Glucose - Point of Care 102 mg/dl (70-99)
[2024-11-24 23:05] LABS: Glucose - Point of Care 111 mg/dl (70-99)
[2024-11-24 23:58] LABS: Glucose - Point of Care 105 mg/dl (70-99)
[2024-11-25] VITALS (26 sets, daily range): BP systolic 108–152; BP diastolic 60–101; PULSE 94; O2SAT 91–92; BMI 41.9
--- NOTE | 2024-11-25 | PTCARENOTE ---
Patient reassessed. Low saO2 noted on 6L via NC. Per CT PA start MF NC. Contacted RT to start. Patient on 9L via NC. Frequent c/o pain. Given dilaudid and gabbie without much relief. Toradol effective in relief of pain. Remains SR on the monitor.
[2024-11-25] MEDS: DILAUDID 0.25 MG IV ×2 (01:00→02:20)
[2024-11-25] MEDS: FLEXERIL 5 MG PO (02:03)
--- NOTE | 2024-11-25 03:00 | PTCARENOTE ---
Per CT PA started patient on HFNC. This RN entered patient's room multiple times with HFNC off. Patient would desat into high 70s without oxygen. Patient reported they are unable to tolerate HFNC d/t 'pressure'. Patient placed back on MFNC at 15L
saO2 at 91-92%.
[2024-11-25 03:29] LABS: Hematocrit 38.3 % (39.0-52.0); Hemoglobin 13.6 g/dL (13.0-18.0); Mean Corp Hgb Conc. 35.5 g/dL (33.0-37.0); Mean Corpuscular Hgb 30.8 pg (27.0-31.0); Mean Corpuscular Volume 86.8 fL (80.0-94.0); Mean Platelet Volume 9.2 fL (7.4-10.4); Platelet Count 306 10^3/uL (130-400); Red Blood Cell Count 4.41 10^6/uL (4.70-6.10); Red Cell Dist. Width 14.2 % (11.5-14.5); White Blood Cell Count 14.6 10^3/uL (4.8-10.8)
[2024-11-25 03:52] LABS: Blood Urea Nitrogen 24 mg/dl (9-20); Calcium 8.9 mg/dl (8.4-10.2); Carbon Dioxide 25 mmol/L (22-30); Chloride 112 mmol/L (98-107); Estimated Creatinine Clearance 99 ml/min; Glucose 109 mg/dl (70-99); Magnesium 2.5 mg/dl (1.6-2.3); Potassium 4.2 mmol/L (3.5-5.1); Sodium 145 mmol/L (135-145); eGFR > 60.00
[2024-11-25] MEDS: ANCEF 5 IV ×2 (04:17→12:58)
[2024-11-25] MEDS: DILAUDID IV (04:27)
[2024-11-25] MEDS: DILAUDID 0.5 MG IV ×4 (04:27→20:29)
[2024-11-25 05:08] LABS: B.E. -1.5 mmol/L; HCO3 24.3 mmol/L (21-28); O2 Saturation % 96.1 % (94-98); PCO2 44 mmHg (35-48); PO2 75 mmHg (83-108); pH 7.35 (7.35-7.45)
[2024-11-25 05:38] LABS: Glucose - Point of Care 114 mg/dl (70-99)
[2024-11-25 05:38] LABS: Glucose - Point of Care 99 mg/dl (70-99)
[2024-11-25 05:38] LABS: Glucose - Point of Care 102 mg/dl (70-99)
--- NOTE | 2024-11-25 06:00 | PTCARENOTE ---
Patient reassessed. Remains on MFNC at 15L. saO2 is 92%. Pain management difficulties. No more toradol per CT PA. Kristen and dilaudid appear ineffective despite additional doses. Orders received to deline patient. Dahiana and Mireille removed. Lisette removed
at 0600 DTV 1200. OOB to chair without incident.
[2024-11-25 06:02] LABS: O2 Therapy 15L
[2024-11-25] MEDS: ROXICODONE 10 MG PO (06:06)
[2024-11-25] MEDS: TYLENOL 1000 MG PO ×3 (06:06→22:09)
--- NOTE | 2024-11-25 06:32 | W.PN.CT ---
Today's Communication / Plan
-
-pod #1
-respiratory insufficiency postop - improved with high flow; however, pt didn't tolerate it. Has dry cough
-encourage IS, acapella, started Mucinex, chest PT
-CT outputs: med 35/210, 2 pleur 140/345 in 12/24 hrs
-deline
-d/c Knox
-d/c insulin
-consider d/c med CT and bulb pleurals
-encourage IS, OOB
Assessment / Plan
-
- NSTEMI/mv-CAD - s/p Cabg x 4, On pump (Singh- diag/lad; (Y off Singh) Stephanie- om; Ao-svg- pda); R EVH by Dr. Macias on 11/24/24, pod #1
- Intraop JOHN: preserved EF pre and post op. Small adelina, not clipped
- HTN
- HLD
- Class 3 Obesity
- S/p gastric sleeve 2015
- BRIANNA per pt, stopped using 8yrs ago
- Hx gout from HCTZ
- Non-smoker
- Acute postop blood loss anemia
- Acute postop respiratory insufficiency, likely d/t pain/splinting
- Acute postop atelectasis
- Acute postop hypovolemia with subsequent hypervolemia
Discussed patient care with: Nursing and Care Team
Subjective
-
Date of Service: November 25, 2024
Objective Data
-
PT 15.7 Sec (11.4-14.6) H 11/24/24 13:22
INR 1.19 11/24/24 13:22
APTT 28.5 Sec (23.4-35.0) 11/24/24 13:22
Vital Signs
Vital Signs
Temp Pulse Resp BP Pulse Ox
99.7 F 93 30 152/89 89
11/25/24 02:00 11/25/24 02:25 11/25/24 02:25 11/25/24 02:12 11/25/24 02:25
CT Intake/Output/Weight
11/24/24 11/24/24 11/25/24
06:59 18:59 06:59
Intake Total 924 / 924 242.9 / 412.5 169.6 / 412.5
Output Total 715 / 1120 405 / 1120
Balance 924 / 924 -472.1 / -707.5 -235.4 / -707.5
SaO2: 89
Physical Exam
-
General: Awake and AOx3
Cardiovascular: Regular rate & rhythm, No Murmurs and Rub
Respiratory: Decreased Breath Sounds
Sternum: Stable
Incision: Clean, Dry and Intact
Extremities: No Edema (2+DPs b/l)
Abdomen: soft, nontender, nondistended, + decreased bowel sounds
Data Reviewed
-
Lab Results: Results Reviewed
Medications: Active Meds Reviewed
Chest X-Ray: Report Reviewed and Image Reviewed
ECG: Report Reviewed and Image Reviewed
[2024-11-25 06:37] LABS: Glucose - Point of Care 111 mg/dl (70-99)
--- NOTE | 2024-11-25 07:43 | W.PN.ANS.POP ---
Anesthesia Post Operative
- Anesthesia Post Op Note
Vital Signs Stable-See Nursing Note: Yes
Airway Patent: Yes
Adequate Pain Control: Yes
Change in Mental Status: No
Current Postoperative Nausea & Vomiting: No
Anesthesia Complications: No
General Anesthetic Recall: No
Unplanned Admission: No
Post Op Hydration Adequate: Yes
[2024-11-25] MEDS: ULTRAM 50 MG PO (08:12)
--- NOTE | 2024-11-25 08:24 | W.PN.INTV ---
Today's Communication / Plan
Recommendations
Febrile this morning, could very well be atelectasis related as he has new retrocardiac opacification seen on CXR
Due to leukocytosis, differential includes reactive versus infectious - check procal tomorrow AM mainly for his negative predictive value
If spikes a fever again then consider panculture which would include checking flu swab, with initiation of broad-spectrum antibiotics
Continue insulin drip with goal BG 110�140
Pain control
Continue CVICU level care. [facility] then we will sign off at that time.
Assessment
-
Assessment: 49-year-old male with a past medical history of hypertension, gout and obesity who presented with burning chest discomfort. He initially had gone to [facility] on 11/22/2024 after being sent there from an urgent care center. He
was experiencing intermittent chest burning discomfort since last Thursday (11/18) + a cough. His pressure was extremely elevated at urgent care and then he was referred to [facility] ER where he was ruled in for an NSTEMI (troponin max 261), and IV heparin
was started. During that evening, he developed chest pain and underwent a left heart catheterization which showed triple-vessel CAD with BUILDING CLEANER of the RCA. He was then transferred to [facility] for further evaluation of a CABG. Patient was
admitted to the CT surgery team. Surgical revascularization was discussed including its risks and benefits and the patient agreed to this procedure. Today he underwent a CABG x 4 on pump. There were no complications. Intraoperative JOHN showed
preserved LVEF at 55% with no regional WMA, with mild MR with a central jet likely due to annular dilation. Patient was transferred to the CVICU for further care and Stereoptician services consulted for additional management/recommendations.
Chronic conditions LOAD MIXER: Hypertension, gout, CAD
Impression:
#NSTEMI with multivessel CAD s/p CABG x 4 off-pump � POD #1
#Prediabetes (HbA1C: 5.7 on 11/22/2024) with hyperglycemia - glucose now controlled on insulin gtt
#Mild MR (per JOHN from 11/24/2024)
#Severe concentric LVH (per JOHN from 11/24/2024)
#Hypertension with recent hypertensive urgency
#Gout
#History of gastric bypass surgery
#History of BRIANNA
#Family history of premature CAD
Plan:
Patient successfully extubated on 11/24/2024, and is currently saturating 90-91% on 6 L/min via midflow nasal cannula
Continue to wean down supplemental O2 flow rate to maintain SpO2 >90-94%
prn nebulized bronchodilators - not currently bronchospastic
Encourage incentive spirometer as tolerated with goal use q1hr while awake
Pulmonary artery catheter parameters will be followed
Pressors/antihypertensive/inotropes/diuretics will be provided as needed
Maintain MAP>65
Replete electrolytes with K>4, Mg>2
Monitor chest tube output (mediastinal chest tube x 1 + bilateral pleural chest tubes)
Monitor hemoglobin
Monitor platelet count and coags
Transfuse blood products as needed to maintain Hb>8g/dL, plt>50k (given post-operative status)
CT surgery managing chest tubes
Patient febrile this morning. Also jump in white count which could be reactive due to recent surgery versus atelectasis, which also could have caused the fever. If patient has a recurrent fever then consider roberto culturing and also checking flu
swab given his generalized body discomfort and starting empiric broad-spectrum antibiotics
- Check procal tomorrow AM mainly for its sensitivity
Monitor blood sugar to maintain euglycemia with goal BG 110-140
Insulin drip per protocol
Aspiration precautions
DVT prophylaxis
Early nutrition
Early mobilization
Continue CVICU level care. Once transferred to CVICU�telemetry then we will sign off at that time.
Critical care statement: A total of 36 minutes of critical care time was provided for this patient today. This includes management of ventilator, spontaneous breathing trial, arterial blood gases, pressors, of unstable vital signs, evaluation of the
patient at bedside, reviewing the patient's pertinent medical records including radiographs, microbiology, laboratory evaluations, and discussion with primary team and critical care nursing.
Data:
Intraoperative JOHN 11/24/2024:
Overall LVEF is approximately 55% with no RWMA.
Severe concentric left ventricular hypertrophy.
Severely dilated left atrium.
Moderately dilated right atrium.
Mild mitral regurgitation.
MR jet is central likely due to annular dilation.
Mid ascending aorta is dilated measuring 4.2 cm at the level of the RPA.
Subjective Dataa
Subjective Data
Date of Service:
Date of Service: November 25, 2024
Chief Complaint: Stereoptician Follow Up
Subjective:
Patient seen and evaluated today at bedside. Had a fever overnight to 100.4 �F. Currently afebrile. He feels very tired overall with some pain in his chest and back, and he says he has discomfort really 'all over.' Heart rate 86, BP 118/64 and
saturating 91% on 6L/min. On insulin drip at 4 units/h.
Review of Systems
General: Other (Negative unless mentioned above)
Objective Data
Data Reviewed
Vital Signs / I&O / Oxygen:
Vital Signs
Temp Pulse Resp BP Pulse Ox
100.4 F H 91 30 139/77 93
11/25/24 06:00 11/25/24 08:50 11/25/24 06:15 11/25/24 08:00 11/25/24 08:50
Intake and Output
11/24/24 11/25/24 11/26/24
06:59 06:59 06:59
Intake Total 924 / 924 501.7 / 501.7
Output Total 1345 / 1345
Balance 924 / 924 -843.3 / -843.3
SaO2 [CPAP/PSV] 92
SaO2 [SIMV] 93
SaO2 93
Nasal Cannula flow liters per 15
minute
Physical Exam
General: Respiratory Distress (negative), Pain (In his chest/back with discomfort across entire body) and Other (Appears uncomfortable and tired; NAD; obese male)
HEENT: Normocephalic, Anicteric and Other (R-IJ cordis in place)
Cardiovascular: S1-S2, Murmur (RAJEEV, grade II/ heard across precordium) and Peripheral Edema (Trace right lower extremity edema, no edema in the left lower extremity)
Respiratory: Wheeze (negative), Crackles (Left base posteriorly), Rhonchi (negative), Non-Labored Respirations, Stridor (negative) and Chest Tube
GI: Soft, Distended (Abdominal obesity), Non Tender and Normal Bowel Sounds
Neurology: AO x 3 and Tremors (negative)
Skin: Warm, Dry, Cyanosis (negative) and Jaundice (negative)
Labs/Micro/Reports
Lab Data
11/25/24 03:11
11/25/24 03:11
Laboratory Results
11/24/24 11/24/24 11/24/24
13:22 14:10 21:22
PT 15.7 H
INR 1.19
APTT 28.5
pH 7.31 L Cancelled 7.36
pCO2 47 Cancelled 42
pO2 73 L Cancelled 75 L
HCO3 23.7 Cancelled 23.7
O2 Delivery Level Cancelled
11/25/24
05:01
PT
INR
APTT
pH 7.35
pCO2 44
pO2 75 L
HCO3 24.3
O2 Delivery Level 15l
[2024-11-25 08:52] LABS: Glucose - Point of Care 105 mg/dl (70-99)
[2024-11-25] MEDS: PROTONIX 40 MG PO (08:54)
[2024-11-25] MEDS: MUCINEX 600 MG PO ×2 (08:54→19:32)
[2024-11-25] MEDS: MAGNESIUM OXIDE 500 MG PO ×2 (08:54→19:28)
[2024-11-25] MEDS: PACERONE 200 MG PO ×3 (08:55→22:10)
[2024-11-25] MEDS: FEOSOL 325 MG PO (08:55)
[2024-11-25] MEDS: LIDOCAINE 4% PATCH 1 PATCH TOPICAL (08:55)
[2024-11-25] MEDS: LOPRESSOR 12.5 MG PO (08:55)
[2024-11-25] MEDS: PLAVIX 75 MG PO (08:55)
[2024-11-25] MEDS: NEURONTIN 100 MG PO ×3 (08:55→22:09)
[2024-11-25] MEDS: LOW STRENGTH ASPIRIN 81 MG PO (08:55)
[2024-11-25] MEDS: VITAMIN C 500 MG PO (08:55)
[2024-11-25] MEDS: SENOKOT-S 1 TABLET PO ×2 (08:55→19:28)
[2024-11-25] MEDS: BACTROBAN 2% OINTMENT 1 APPLIC NASAL ×2 (08:56→19:32)
--- NOTE | 2024-11-25 10:00 | PTCARENOTE ---
AAOx4 w/ complaints of pain OOB to chair; NSR VSS; x4 pulses; 15L Mid flow changed to 6L nc, decreased in the bases; GI and WNl, all surgical incisions CDI; RIJC and PIV wnl. see worklist for detailed assessment
[2024-11-25] MEDS: PROTONIX PO (10:35)
--- NOTE | 2024-11-25 10:43 | W.PN.CARDCBS ---
Addendum entered and electronically signed by Ralph Posadas MD 11/25/24 11:05:
I saw and examined the patient.
The MANAGER INSTRUMENTATION or PA's note was reviewed and I agree with the note.
Comment: General: Well developed, well nourished in NAD.
Neck: Supple, no JVD, HJR, carotids +2 B/L, no bruits bilaterally.
Heart: Non displaced PMI, RRR, no murmurs, No S3, S4, no rubs.
Lungs: Scattered rhonchi
Sternal dressings noted
Extremities: No clubbing, cyanosis or edema bilaterally.
Neuro: Grossly nonfocal, awake, alert and oriented x3.
Stable cardiology status. Wean oxygen. Remains in sinus rhythm. Discussed with CT surgery as well as at bedside.
Original Note:
Today's Communication / Plan
-
Continue postop care
wean supplemental oxygen
Impression / Plan
-
Primary Dye Tank Tender: initially seen by ATC at [facility]
Assessment:
HTN urgency
NSTEMI with MV CAD by cath at [facility] 11/22/24 including occluded RCA, culprit circ, and LAD disease
s/p CABG x4 CHESTER-diag/LAD, DUTCH-OM, Ao-SVG-PDA with rigid sternal fixation 11/24/24
Gout
Obesity
History of gastric bypass surgery 2015 or 2017
BRIANNA
FH of premature CAD
ECHO at [facility] 11/22/24: EF 55 to 60%, moderate concentric LVH, RV size mildly dilated, aortic sinuses dilated and ascending aorta dilated
Plan:
- Patient presented to [facility] with hypertensive urgency. Ruled in for NSTEMI and underwent cardiac catheterization 11/22/2024 at [facility] with multivessel coronary disease resulting in transfer to [facility]
Hospital for CABG evaluation
-s/p CABG x4 CHESTER-diag/LAD, DUTCH-OM, Ao-SVG-PDA with rigid sternal fixation 11/24/24
- he reports significant pain and fatigue. continue mgmt per CT surgery
- with post op resp insufficiency. slowly weaning supp O2, currently down to 6L.
- Noted to have a temperature this morning. Follow curve. Chest x-ray this morning without clear evidence of aspiration
- off pressors
-plan for asa, plavix given NSTEMI presentation. hgb 13.6
-EKG NSR
-BPs were elevated preop, norvasc and toprol were uptitrated. follow post op BP trends
-LDL 72. continue high intensity statin
-continue post op care
-d/w nursing
Progress Note - Dye Tank Tender
Subjective
Date of Service: November 25, 2024
Reports fatigue and discomfort. 'I feel like I got run over by a truck'
Objective
Labs:
11/25/24 03:11
11/25/24 03:11
Labs
Hgb 13.6 g/dL (13.0-18.0) 11/25/24 03:11
Hct 38.3 % (39.0-52.0) L 11/25/24 03:11
Plt Count 306 10^3/uL (130-400) 11/25/24 03:11
PT 15.7 Sec (11.4-14.6) H 11/24/24 13:22
INR 1.19 11/24/24 13:22
APTT 28.5 Sec (23.4-35.0) 11/24/24 13:22
Sodium 145 mmol/L (135-145) 11/25/24 03:11
Potassium 4.2 mmol/L (3.5-5.1) 11/25/24 03:11
BUN 24 mg/dl (9-20) H 11/25/24 03:11
Creatinine 1.3 mg/dL (0.7-1.3) 11/25/24 03:11
Glucose 109 mg/dl (70-99) H 11/25/24 03:11
Troponins
11/22/24 11/23/24
17:03 06:19
Troponin I 0.787 H* 0.800 H*
Vital Signs and I&O:
Vital Signs
Temp Pulse Resp BP Pulse Ox
100.4 F H 91 30 139/77 93
11/25/24 06:00 11/25/24 08:50 11/25/24 06:15 11/25/24 08:00 11/25/24 08:50
Vital Signs
Temp Pulse Resp BP Pulse Ox
100.4 F H 91 30 139/77 93
11/25/24 06:00 11/25/24 08:50 11/25/24 06:15 11/25/24 08:00 11/25/24 08:50
Intake & Output
11/23/24 11/24/24 11/25/24 11/26/24
07:59 07:59 07:59 07:59
Intake Total 924 / 924 501.7 / 501.7
Output Total 1345 / 1345
Balance 924 / 924 -843.3 / -843.3
Physical Exam
Physical Exam
GEN: No distress, awake, alert, oriented x3. Obese. On supplemental oxygen
HEENT: supple, anicteric, mmm, EOMI
LUNGS: Decreased bilaterally, no wheezes
CV: Reg, S1/S2, no murmur
ABD: soft, BS+, NT/ND
EXT: No cyanosis, clubbing. Trace edema of bilateral lower extremity
NEURO: Gross non-focal
SKIN: Warm, pink, dry. No rash. Sternotomy incision clean dry and intact
[2024-11-25 12:01] LABS: Glucose - Point of Care 130 mg/dl (70-99)
--- NOTE | 2024-11-25 12:30 | PTCARENOTE ---
no change from previous assessment
[2024-11-25] MEDS: NOVOLOG FLEXPEN SC ×2 (12:36→18:26)
[2024-11-25] MEDS: NSS 500 IV (12:58)
--- NOTE | 2024-11-25 13:00 | PTCARENOTE ---
no change from previous assessment
[2024-11-25] MEDS: ROXICODONE 5 MG PO ×3 (14:07→23:42)
[2024-11-25 14:12] LABS: Glucose - Point of Care 107 mg/dl (70-99)
[2024-11-25] MEDS: NOVOLOG FLEXPEN 4 UNITS SC (14:41)
--- NOTE | 2024-11-25 14:43 | CM ---
Chart reviewed. Patient is independent of ADLS, lives with his and 2 children (20,17) in a 2 [address], 2 EB, 0 DME. Plan is for the patient to return home with CT Transitional RN. CM to follow
--- NOTE | 2024-11-25 16:00 | PTCARENOTE ---
no change from previous assessment
[2024-11-25 16:17] LABS: Glucose - Point of Care 97 mg/dl (70-99)
[2024-11-25] MEDS: LIPITOR 80 MG PO (18:21)
[2024-11-25] MEDS: LOPRESSOR 25 MG PO (19:28)
--- NOTE | 2024-11-25 20:30 | PTCARENOTE ---
Assumed care of patient at 1900. Patient found resting in bed at time of assessment. Patient is AOx4, follows commands appropriately, moves all extremities. Lung sounds are diminished throughout, respirations are shallow, CTx2: R/L pleural each to
bulb suction. Patient's saO2 85-86% on 6L via NC following ambulation to bathroom. Worked on deep breathing with patient unable to get saO2 any higher. Restarted on MFNC at 9L. SaO2 improved to 90-91%. Heart sounds are audible, there is a rub
present on auscultation, pulses are palpable, there is trace pedal edema present. V wires in place with VVI settings . Patient has active BS throughout all quadrants, voiding in bathroom. Patient has a sternal incision approx with surg
adhesive SHERICE, R groin puncture approx with surg adhesive WHISKEY FILTERER, and RLE incision approx with surg adhesive WHISKEY FILTERER. Patient has R IJ cordis KVO and R AC 20G PIV. All other VSS. Patient c/o pain given gabbie 5. On reassessment patient still in pain. Given
0.5 dilaudid. Patient able to fall asleep. Call tucker within reach.
[2024-11-26] VITALS (16 sets, daily range): BP systolic 117–159; BP diastolic 70–93; PULSE 81; O2SAT 90–92; BMI 42.7
--- NOTE | 2024-11-26 | PTCARENOTE ---
Patient reassessed. saO2 90-91% on 9L via [facility]. Pain management with gabbie and dilaudid. Call tucker within reach.
[2024-11-26] MEDS: DILAUDID 0.25 MG IV ×2 (00:40→02:52)
[2024-11-26] MEDS: ULTRAM 50 MG PO (01:55)
--- NOTE | 2024-11-26 03:51 | W.PN.CT ---
Today's Communication / Plan
-
-pod #2
-no significant issues overnight
-CT outputs: L pleur 20/60, R pleur 20/50 in 12/24 hrs
-elevated Procalcitonin 4.9, wbc trended up from 14.6 to 17.8. On 11- L midflow with O2 sat 89-90. Consider Abx
-Cr trended up- 1.8 today (1.3 on 11/25, 1.2 on 11/24, and 0.9 preop)
-current meds (ASA, Plavix, Lipitor, Lopressor 25 bid, Amio, Protonix, Mucinex, Feosol, Vit C)
-encourage IS, OOB, chest PT, ambulate
Assessment / Plan
-
- NSTEMI/mv-CAD - s/p Cabg x 4, On pump (Singh- diag/lad; (Y off Singh) Stephanie- om; Ao-svg- pda); R EVH by Dr. Macias on 11/24/24, pod #2
- Intraop JOHN: preserved EF pre and post op. Small adelina, not clipped
- HTN
- HLD
- Class 3 Obesity
- S/p gastric sleeve 2015
- BRIANNA per pt, stopped using 8yrs ago
- Hx gout from HCTZ
- Non-smoker
- Acute postop blood loss anemia
- Acute postop respiratory insufficiency, likely d/t pain/splinting
- Acute postop atelectasis
- Acute postop hypovolemia with subsequent hypervolemia
- FELIX
Discussed patient care with: Nursing and Care Team
Subjective
-
Date of Service: November 26, 2024
Objective Data
-
PT 15.7 Sec (11.4-14.6) H 11/24/24 13:22
INR 1.19 11/24/24 13:22
APTT 28.5 Sec (23.4-35.0) 11/24/24 13:22
Vital Signs
Vital Signs
Temp Pulse Resp BP Pulse Ox
98.2 F 80 20 117/80 89
11/25/24 23:00 11/26/24 00:15 11/25/24 23:00 11/26/24 00:00 11/26/24 00:[address]
CT Intake/Output/Weight
11/25/24 11/25/24 11/26/24
06:59 18:59 06:59
Intake Total 258.8 / 515.0 458.8 / 518.8 60 / 518.8
Output Total 630 / 1345 1090 / 1110 20 / 1110
Balance -371.2 / -830.0 -631.2 / -591.2 40 / -591.2
SaO2: 89
[2024-11-26 04:19] LABS: Hematocrit 37.6 % (39.0-52.0); Hemoglobin 12.8 g/dL (13.0-18.0); Mean Corpuscular Hgb 30.6 pg (27.0-31.0); Mean Platelet Volume 9.4 fL (7.4-10.4); Platelet Count 267 10^3/uL (130-400); Red Blood Cell Count 4.18 10^6/uL (4.70-6.10); Red Cell Dist. Width 14.6 % (11.5-14.5); White Blood Cell Count 17.8 10^3/uL (4.8-10.8)
[2024-11-26 04:45] LABS: Blood Urea Nitrogen 44 mg/dl (9-20); Calcium 8.6 mg/dl (8.4-10.2); Carbon Dioxide 26 mmol/L (22-30); Chloride 107 mmol/L (98-107); Estimated Creatinine Clearance 71 ml/min; Glucose 107 mg/dl (70-99); Magnesium 2.8 mg/dl (1.6-2.3); Potassium 4.3 mmol/L (3.5-5.1); Sodium 142 mmol/L (135-145); eGFR 45.29
[2024-11-26] MEDS: TYLENOL 1000 MG PO ×3 (05:16→21:28)
[2024-11-26] MEDS: ROXICODONE 5 MG PO ×3 (05:17→20:05)
[2024-11-26 05:32] LABS: Procalcitonin 4.49 ng/ml (0.0-0.25)
--- NOTE | 2024-11-26 05:37 | PTCARENOTE ---
Patient reassessed. O2 increased to 12L via MFNC. Given one time dose of 0.25 dilaudid d/t intolerable pain. AM labs obtained. Critical procalcitonin with labs 4.49. BUN and Cr also elevated with AM labs. CT PA notified. OOB to chair without
incident.
[2024-11-26] MEDS: DILAUDID 0.5 MG IV ×2 (05:53→08:54)
--- NOTE | 2024-11-26 06:36 | PTCARENOTE ---
While washing patient this AM this RN noticed drainage on patient's gown. Upon assessment patient's sternal incision was oozing sanguineous from midpoint of incision. CT PA notified at bedside to assess. Advised to place 4x4 gauze dressing over
incision.
--- NOTE | 2024-11-26 07:57 | W.PN.CARDCBS ---
Today's Communication / Plan
-
Out of bed
Incentive spirometry
Consider antibiotics for possible pneumonia
Would plan attempt at IV diuresis to see if this improves his oxygen requirement
Follow creatinine closely
Appreciate excellent CT surgical care
Impression / Plan
-
Primary Mexican Food Maker: initially seen by ATC at [facility]
Assessment:
HTN urgency
NSTEMI with MV CAD by cath at [facility] 11/22/24 including occluded RCA, culprit circ, and LAD disease
s/p CABG x4 CHESTER-diag/LAD, DUTCH-OM, Ao-SVG-PDA with rigid sternal fixation 11/24/24
Gout
Obesity
History of gastric bypass surgery 2015 or 2016
BRIANNA
FH of premature CAD
ECHO at [facility] 11/22/24: EF 55 to 60%, moderate concentric LVH, RV size mildly dilated, aortic sinuses dilated and ascending aorta dilated
Plan:
- Patient presented to [facility]/ with hypertensive urgency. Ruled in for NSTEMI and underwent cardiac catheterization 11/22/[address] [facility] with multivessel coronary disease resulting in transfer to [facility]
Hospital for CABG evaluation
-s/p CABG x4 CHESTER-diag/LAD, DUTCH-OM, Ao-SVG-PDA with rigid sternal fixation 11/24/24
- Oxygen requirement, chest x-ray, and white blood cell count noted. I do agree with consideration for antibiotics treating appropriate mechanism of pneumonia. It does appear that he has some increased weight and mild volume overload and I have no
objection to IV Lasix today despite his creatinine of 1.8. We should follow his creatinine on a daily basis and closely.
- with post op resp insufficiency. slowly weaning supp O2, currently down to 6L. He is respiratory effort also appears poor and I encouraged increased spirometry and alert sensorium
-plan for asa, plavix given NSTEMI presentation. hgb 13.6
-EKG NSR
-BPs were elevated preop, norvasc and toprol were uptitrated. follow post op BP trends
-LDL 72. continue high intensity statin
- Appreciate excellent CT surgery care
-d/w CT surgery team
Progress Note - Mexican Food Maker
Subjective
Date of Service: November 26, 2024
Out of bed in chair this morning.
Objective
Labs:
11/26/24 03:59
11/26/24 03:59
Labs
Hgb 12.8 g/dL (13.0-18.0) L 11/26/24 03:59
Hct 37.6 % (39.0-52.0) L 11/26/24 03:59
Plt Count 267 10^3/uL (130-400) 11/26/24 03:59
PT 15.7 Sec (11.4-14.6) H 11/24/24 13:22
INR 1.19 11/24/24 13:22
APTT 28.5 Sec (23.4-35.0) 11/24/24 13:22
Sodium 142 mmol/L (135-145) 11/26/24 03:59
Potassium 4.3 mmol/L (3.5-5.1) 11/26/24 03:59
BUN 44 mg/dl (9-20) H 11/26/24 03:59
Creatinine 1.8 mg/dL (0.7-1.3) H 11/26/24 03:59
Glucose 107 mg/dl (70-99) H 11/26/24 03:59
Vital Signs and I&O:
Vital Signs
Temp Pulse Resp BP Pulse Ox
98.1 F 90 22 134/70 90
11/26/24 03:00 11/26/24 04:05 11/26/24 03:00 11/26/24 04:00 11/26/24 04:05
Vital Signs
Temp Pulse Resp BP Pulse Ox
98.1 F 90 22 134/70 90
11/26/24 03:00 11/26/24 04:05 11/26/24 03:00 11/26/24 04:00 11/26/24 04:05
Intake & Output
11/24/24 11/25/24 11/26/24 11/27/24
06:59 06:59 06:59 06:59
Intake Total 924 / 924 501.7 / 515.0 558.8 / 558.8
Output Total 1345 / 1345 1130 / 1130
Balance 924 / 924 -843.3 / -830.0 -571.2 / -571.2
Physical Exam
Physical Exam
����Physical Exam
���������������������General:��no apparent distress, not acutely ill
���������������������������Neck:��supple. no meningeal signs. normal psoterior pharynx
������������������������
���������������������������Heart:��s1/s2 regular rate and rhythm, no murmur. equal radial pulses.
Sternum clean dry and intact
��������������������������Lungs: ��no acute respiratory distress. clear bilaterally
����������������������Abdomen:�normal bowel sounds. not tender. no CVAT
��������������������������Neuro:��alert and oriented. no focal neurological deficits
������������������������������Skin: ��no rash
�����������������������Psychiatric:�well kept. interactive and cooperative
�����������������������Extremities:��no edema. no calf tenderness. negative homans. good distal pulses
��
�
--- NOTE | 2024-11-26 08:19 | W.PN.INTV ---
Today's Communication / Plan
Recommendations
Febrile on AM of 11/25 with DDx including atelectasis seen in LLL (new retrocardiac opacification seen on CXR) vs infection
Due to leukocytosis, differential includes reactive versus infectious - procal elevated but he is now in an FELIX, hence this does not rule in an infection; he denies a cough or SOB
If hypoxia persists today despite being diuresed, then would check a flu swab + RSV and COVID
May need additional diuresis as CXR today appears he is more volume overloaded
If spikes a fever again then consider panculture which would include checking flu swab, with initiation of broad-spectrum antibiotics
Goal BG 110�140
Pain control
Suspect he has BRIANNA --> can use BiPAP during sleep if hypoxia worsens; I will arrange for outpatient office follow up to further discuss SDB and offer a sleep study
Continue CVICU level care; likely being transitioned to CVICU�telemetry is today. Given his FELIX with worsening leukocytosis, Electronic Sensing Equipment Assembler services will continue to follow along.
Assessment
-
Assessment: 49-year-old male with a past medical history of hypertension, gout and obesity who presented with burning chest discomfort. He initially had gone to [facility] on 11/22/2024 after being sent there from an urgent care center. He
was experiencing intermittent chest burning discomfort since last Thursday (11/18) + a cough. His pressure was extremely elevated at urgent care and then he was referred to [facility] ER where he was ruled in for an NSTEMI (troponin max 261), and IV heparin
was started. During that evening, he developed chest pain and underwent a left heart catheterization which showed triple-vessel CAD with HAIRPIECE STYLIST of the RCA. He was then transferred to [facility] for further evaluation of a CABG. Patient was
admitted to the CT surgery team. Surgical revascularization was discussed including its risks and benefits and the patient agreed to this procedure. Today he underwent a CABG x 4 on pump. There were no complications. Intraoperative JOHN showed
preserved LVEF at 55% with no regional WMA, with mild MR with a central jet likely due to annular dilation. Patient was transferred to the CVICU for further care and Electronic Sensing Equipment Assembler services consulted for additional management/recommendations.
Chronic conditions HEDIS NURSE: Hypertension, gout, CAD
Impression:
#NSTEMI with multivessel CAD s/p CABG x 4 off-pump � POD #2
#Prediabetes (HbA1C: 5.7 on 11/22/2024) with hyperglycemia
#Mild MR (per JOHN from 11/24/2024)
#FELIX
#Severe concentric LVH (per JOHN from 11/24/2024)
#Hypertension with recent hypertensive urgency
#Gout
#History of gastric bypass surgery
#History of BRIANNA
#Family history of premature CAD
Plan:
Patient successfully extubated on 11/24/2024, and is currently saturating 991% on 9 L/min via midflow nasal cannula; yesterday he was on 6L/min
Continue to wean down supplemental O2 flow rate to maintain SpO2 >90-94%
Given his thick neck with morbid obesity and excessive daytime sleepiness, suspect that he has obstructive sleep apnea. If hypoxia persists and worsens especially while sleeping, would place him onto BiPAP; I will arrange for outpatient office
follow-up to discuss sleep disordered breathing further and offer a sleep study
CXR from this morning (11/26) shows worsening retrocardiac opacification that appears that he has pulmonary vascular congestion which is also increased compared to yesterday. 40 mg IV Lasix given to him today. Continue to reassess O2 needs and may
need to give additional doses of Lasix depending on his initial response this morning
prn nebulized bronchodilators - not currently bronchospastic
Encourage incentive spirometer as tolerated with goal use q1hr while awake
Pressors/antihypertensive/inotropes/diuretics will be provided as needed
Maintain MAP>65
Replete electrolytes with K>4, Mg>2
Monitor chest tube output (bilateral pleural chest tubes which are going to be removed later this AM)
Monitor hemoglobin
Monitor platelet count and coags
Transfuse blood products as needed to maintain Hb>8g/dL, plt>50k (given post-operative status)
CT surgery managing chest tubes
Patient febrile on AM of 11/25; Also jump in white count which could be reactive due to recent surgery versus atelectasis, which also could have caused the fever. If patient has a recurrent fever then consider roberto culturing and also checking flu
swab given his generalized body discomfort and starting empiric broad-spectrum antibiotics
- Procal checked this AM which was elevated, however he also is now in an FELIX; continue to monitor for fevers as stated above
Monitor blood sugar to maintain euglycemia with goal BG 110-140
Insulin drip now off; recommend ISS to maintain BG at goal as above
Aspiration precautions
DVT prophylaxis
Early nutrition
Early mobilization
Continue CVICU level care; likely being transitioned to CVICU�telemetry is today. Given his FELIX with worsening leukocytosis, Electronic Sensing Equipment Assembler services will continue to follow along.
Total time spent today was 79 minutes for this encounter. Time includes reviewing laboratory test/imaging results, reviewing pertinent medical records, obtaining and reviewing medical history, performing an appropriate exam, ordering medications,
tests and procedures. Time also includes documentation of this encounter, coordinating patient care and communicating with other healthcare professionals. Total time does not include separately billed tests performed on this date of service.
Data:
Intraoperative JOHN 11/24/2024:
Overall LVEF is approximately 55% with no RWMA.
Severe concentric left ventricular hypertrophy.
Severely dilated left atrium.
Moderately dilated right atrium.
Mild mitral regurgitation.
MR jet is central likely due to annular dilation.
Mid ascending aorta is dilated measuring 4.2 cm at the level of the RPA.
Subjective Dataa
Subjective Data
Date of Service:
Date of Service: November 26, 2024
Chief Complaint: Electronic Sensing Equipment Assembler Follow Up
Subjective:
Patient seen and evaluated this morning. No fever since 11/25 in the morning hours. He feels tired. Heart rate 86, BP 149/78 and saturating 91% on 9 L/min via midflow NC. He says he does not have a cough, does not feel short of breath, does not
feel feverish, and denies nausea, abdominal pain or headache.
Review of Systems
General: Other (Negative unless mentioned above)
Objective Data
Data Reviewed
Vital Signs / I&O / Oxygen:
Vital Signs
Temp Pulse Resp BP Pulse Ox
98.3 F 97 22 126/88 88
11/26/24 07:00 11/26/24 08:45 11/26/24 07:00 11/26/24 08:27 11/26/24 08:45
Intake and Output
11/25/24 11/26/24 11/27/24
06:59 06:59 06:59
Intake Total 501.7 / 515.0 558.8 / 558.8
Output Total 1345 / 1345 1130 / 1130 175 / 175
Balance -843.3 / -830.0 -571.2 / -571.2 -175 / -175
SaO2 [CPAP/PSV] 92
SaO2 [SIMV] 93
SaO2 88
Nasal Cannula flow liters per 13
minute
Physical Exam
General: Respiratory Distress (negative), Comfortable and Other (NAD; obese male)
HEENT: Normocephalic, Anicteric and Other (thick neck)
Cardiovascular: S1-S2, Murmur (RAJEEV, grade II/ heard across precordium) and Peripheral Edema (negative)
Respiratory: Wheeze (negative), Crackles (Left base posteriorly), Rhonchi (negative), Non-Labored Respirations, Stridor (negative) and Chest Tube
GI: Soft, Distended (Abdominal obesity), Non Tender and Normal Bowel Sounds
Neurology: Awake, Tremors (negative) and Other (Appears sleepy)
Skin: Warm, Dry, Cyanosis (negative) and Jaundice (negative)
Labs/Micro/Reports
Lab Data
11/26/24 03:59
11/26/24 03:59
[2024-11-26] MEDS: LASIX 40 MG IV (08:21)
[2024-11-26] MEDS: MUCINEX 600 MG PO (08:27)
[2024-11-26] MEDS: PACERONE 200 MG PO ×3 (08:27→21:28)
[2024-11-26] MEDS: PROTONIX 40 MG PO (08:27)
[2024-11-26] MEDS: LOW STRENGTH ASPIRIN 81 MG PO (08:27)
[2024-11-26] MEDS: NEURONTIN 100 MG PO ×3 (08:28→21:28)
[2024-11-26] MEDS: SENOKOT-S 1 TABLET PO ×2 (08:28→21:27)
[2024-11-26] MEDS: PLAVIX 75 MG PO (08:28)
[2024-11-26] MEDS: FEOSOL 325 MG PO (08:28)
[2024-11-26] MEDS: LOPRESSOR 25 MG PO ×2 (08:28→20:05)
[2024-11-26] MEDS: VITAMIN C 500 MG PO (08:28)
[2024-11-26] MEDS: BACTROBAN 2% OINTMENT 1 APPLIC NASAL ×2 (08:28→20:05)
[2024-11-26] MEDS: LIDOCAINE 4% PATCH 1 PATCH TOPICAL (08:48)
[2024-11-26 08:55] LABS: Glucose - Point of Care 122 mg/dl (70-99)
--- NOTE | 2024-11-26 10:51 | PTCARENOTE ---
Patient care assumed from nightshift RN. Fully alert and oriented. Afebrile. Patient OOB in chair, complained of 7/10 pain at surgical incision sites. PRN Dilaudid given, pt responded well. OOB encouraged frequently. R and L pleural chest tubes
discontinued. V-wire insulated. NSR. Pt on 13L MFNC, O2 sats 90-91%, lungs diminished. Worked with cardiac rehab and performed exercises and ambulation in room. Pt assist x1. Voids in bathroom, kerwin clear urine. Lasix 40mg IV given, I&Os strictly
monitored. RIJ cordis remains intact.
[2024-11-26] MEDS: FLEXERIL 5 MG PO (12:23)
[2024-11-26 12:28] LABS: Glucose - Point of Care 107 mg/dl (70-99)
[2024-11-26] MEDS: NSS 500 IV (13:16)
--- NOTE | 2024-11-26 13:20 | PTCARENOTE ---
Patient VSS. OOB in chair. Pain controlled with PRN meds. Kristen 5mg and Flexeril 5mg given. Voiding in hat in bathroom, monitoring I&Os. MFNC decreased to 9L, closely monitoring O2 saturations.
[2024-11-26 15:04] LABS: Blood Urea Nitrogen 47 mg/dl (9-20); Calcium 8.5 mg/dl (8.4-10.2); Carbon Dioxide 25 mmol/L (22-30); Chloride 105 mmol/L (98-107); Estimated Creatinine Clearance 76 ml/min; Glucose 142 mg/dl (70-99); Potassium 4.1 mmol/L (3.5-5.1); Sodium 139 mmol/L (135-145); eGFR 48.51
[2024-11-26] MEDS: MUCINEX 1200 MG PO ×2 (16:38→20:05)
[2024-11-26 16:45] LABS: Glucose - Point of Care 134 mg/dl (70-99)
--- NOTE | 2024-11-26 16:59 | PTCARENOTE ---
Patient OOB in chair. Ambulated in hallway with assistance x1, well tolerated. Repeat BMP drawn, creatinine down from 1.8 to 1.7. Appetite is increasing. Voiding in bathroom without complication. Family at bedside. Down to 6LNC.
--- NOTE | 2024-11-26 20:00 | PTCARENOTE ---
assumed care of pt from previous RN. pt A&Ox4, resting in chair at time of assessment. SR on tele-monitor. POX 94% on 6 L NC. abd s/n, round, obese. +BS. voiding clear, yellow urine in urinal. all surgical sites stable, CDI. R IJ cordis w/ KVO. PIV
intact. see worklist for complete nursing assessment, interventions, VS, and I&Os.
[2024-11-26] MEDS: LIPITOR 80 MG PO (20:05)
[2024-11-26] MEDS: SENOKOT-S PO (20:05)
[2024-11-26 21:32] LABS: Glucose - Point of Care 109 mg/dl (70-99)
[2024-11-27] VITALS (8 sets, daily range): BP systolic 135–171; BP diastolic 77–93; BMI 42.6
--- NOTE | 2024-11-27 00:15 | PTCARENOTE ---
assessment remains unchanged. VSS. POX 93% on 6 L NC.
[2024-11-27] MEDS: ROXICODONE 5 MG PO ×5 (01:07→20:29)
[2024-11-27 02:55] LABS: Hematocrit 34.8 % (39.0-52.0); Hemoglobin 12.3 g/dL (13.0-18.0); Mean Corp Hgb Conc. 35.3 g/dL (33.0-37.0); Mean Corpuscular Hgb 31.7 pg (27.0-31.0); Mean Corpuscular Volume 89.7 fL (80.0-94.0); Platelet Count 255 10^3/uL (130-400); Red Blood Cell Count 3.88 10^6/uL (4.70-6.10); Red Cell Dist. Width 14.6 % (11.5-14.5); White Blood Cell Count 12.3 10^3/uL (4.8-10.8)
[2024-11-27 03:05] LABS: Blood Urea Nitrogen 45 mg/dl (9-20); Calcium 8.5 mg/dl (8.4-10.2); Carbon Dioxide 27 mmol/L (22-30); Chloride 107 mmol/L (98-107); Estimated Creatinine Clearance 99 ml/min; Glucose 105 mg/dl (70-99); Phosphorus 2.5 mg/dl (2.5-4.5); Potassium 4.1 mmol/L (3.5-5.1); Sodium 141 mmol/L (135-145); eGFR > 60.00
[2024-11-27 03:15] LABS: NT-proBNP 1420 pg/ml
[2024-11-27] MEDS: FLEXERIL 5 MG PO ×2 (03:58→12:52)
--- NOTE | 2024-11-27 04:00 | PTCARENOTE ---
no acute changes. VSS. POX 92% on 4 L NC.
[2024-11-27] MEDS: TYLENOL 1000 MG PO ×3 (05:10→22:01)
--- NOTE | 2024-11-27 05:57 | W.PN.CT ---
Today's Communication / Plan
-
-pod #3
-no significant issues overnight
-CTs out
-WBC trending down, no fever, observing off abx for now, O2 down to 4 L from 12 L yesterday
-Cr trending back down, given IV lasix with 725/1555 cc UOP in 12/24 hrs
-current meds (ASA, Plavix, Lipitor, Lopressor 25 bid, Amio, Protonix, Mucinex, Feosol, Vit C)
-encourage IS, OOB, chest PT, ambulate
Assessment / Plan
-
- NSTEMI/mv-CAD - s/p Cabg x 4, On pump (Singh- diag/lad; (Y off Singh) Stephanie- om; Ao-svg- pda); R EVH by Dr. Macias on 11/24/24, pod #3
- Intraop JOHN: preserved EF pre and post op. Small adelina, not clipped
- HTN
- HLD
- Class 3 Obesity
- S/p gastric sleeve 2015
- BRIANNA per pt, stopped using 8yrs ago
- Hx gout from HCTZ
- Non-smoker
- Acute postop blood loss anemia
- Acute postop respiratory insufficiency, likely d/t pain/splinting
- Acute postop atelectasis
- Acute postop hypovolemia with subsequent hypervolemia
- FELIX
Subjective
-
Date of Service: November 27, 2024
Objective Data
-
Lab Results
11/27/24 02:42
11/27/24 02:42
PT 15.7 Sec (11.4-14.6) H 11/24/24 13:22
INR 1.19 11/24/24 13:22
APTT 28.5 Sec (23.4-35.0) 04/17/25 13:22
Vital Signs
Vital Signs
Temp Pulse Resp BP Pulse Ox
98.3 F 89 18 149/87 90
11/27/24 04:00 11/27/24 05:00 11/27/24 04:00 11/27/24 03:55 11/27/24 05:00
CT Intake/Output/Weight
11/26/24 11/26/24 11/27/24
06:59 18:59 06:59
Intake Total 100 / 558.8 280 / 380 100 / 380
Output Total 40 / 1130 830 / 1555 725 / 1555
Balance 60 / -571.2 -550 / -1175 -625 / -1175
SaO2: 90
Physical Exam
-
General: Awake, Oriented and AOx3
Cardiovascular: Regular rate & rhythm, No Murmurs and No Rub
Respiratory: Clear and Decreased Breath Sounds
Sternum: Stable
Incision: Clean, Dry and Intact
Extremities: Edema +1
Data Reviewed
-
Lab Results: Results Reviewed
Medications: Active Meds Reviewed
Chest X-Ray: Report Reviewed
ECG: Report Reviewed
[2024-11-27] MEDS: PLAVIX 75 MG PO (08:17)
[2024-11-27] MEDS: BACTROBAN 2% OINTMENT 1 APPLIC NASAL ×2 (08:17→20:30)
[2024-11-27] MEDS: MUCINEX 1200 MG PO ×2 (08:17→20:26)
[2024-11-27] MEDS: PROTONIX 40 MG PO (08:17)
[2024-11-27] MEDS: NEURONTIN 100 MG PO ×3 (08:17→22:01)
[2024-11-27] MEDS: VITAMIN C 500 MG PO (08:17)
[2024-11-27] MEDS: LOPRESSOR 25 MG PO (08:18)
[2024-11-27] MEDS: PACERONE 200 MG PO ×3 (08:18→22:01)
[2024-11-27] MEDS: SENOKOT-S 1 TABLET PO ×2 (08:18→20:29)
[2024-11-27] MEDS: LIDOCAINE 4% PATCH TOPICAL (08:18)
[2024-11-27] MEDS: LOW STRENGTH ASPIRIN 81 MG PO (08:18)
--- NOTE | 2024-11-27 08:27 | W.PN.INTV ---
Today's Communication / Plan
Recommendations
Febrile on AM of 11/25 with DDx including atelectasis seen in LLL (new retrocardiac opacification seen on CXR) vs infection
Due to leukocytosis, differential includes reactive versus infectious - procal elevated but he developed an FELIX, hence this does not rule in an infection; he denies a cough or SOB
As of today (11/27), his leukocytosis, FELIX, oxygen requirements and CXR are all improving
If hypoxia recurs, then would check a flu swab + RSV and COVID
If spikes a fever again then consider panculture which would include checking flu swab, with initiation of broad-spectrum antibiotics
Goal BG 110�140
Pain control
He has a Hx of BRIANNA but is noncompliant to CPAP--> while hospitalized, can use CPAP during sleep if hypoxia worsens; I will arrange for outpatient office follow up to further discuss SDB and offer a sleep study
Patient is CVICU�telemetry status. Given his continued oxygen requirements as well as continued leukocytosis and improving FELIX, no additional recommendations at this time. Healthcare Interpreter/Pulmonary service will now sign off. Please reconsult if there
are any additional questions/concerns, or if patient's respiratory status deteriorates.
Assessment
-
Assessment: 49-year-old male with a past medical history of hypertension, gout and obesity who presented with burning chest discomfort. He initially had gone to [facility] on 11/22/2024 after being sent there from an urgent care center. He
was experiencing intermittent chest burning discomfort since last Thursday (11/18) + a cough. His pressure was extremely elevated at urgent care and then he was referred to [facility] ER where he was ruled in for an NSTEMI (troponin max 261), and IV heparin
was started. During that evening, he developed chest pain and underwent a left heart catheterization which showed triple-vessel CAD with MOID [employer] S[employer] TE[employer]ER of the RCA. He was then transferred to [facility] for further evaluation of a CABG. Patient was
admitted to the CT surgery team. Surgical revascularization was discussed including its risks and benefits and the patient agreed to this procedure. Today he underwent a CABG x 4 on pump. There were no complications. Intraoperative JOHN showed
preserved LVEF at 55% with no regional WMA, with mild MR with a central jet likely due to annular dilation. Patient was transferred to the CVICU for further care and Healthcare Interpreter services consulted for additional management/recommendations.
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
Impression:
#NSTEMI with multivessel CAD s/p CABG x 4 off-pump � POD #3
#Prediabetes (HbA1C: 5.7 on 11/22/2024) with hyperglycemia (now BG controlled)
#Mild MR (per JOHN from 11/24/2024)
#FELIX - improving
#Severe concentric LVH (per JOHN from 11/24/2024)
#Hypertension with recent hypertensive urgency
#Gout
#History of gastric bypass surgery
#History of BRIANNA
#Family history of premature CAD
Plan:
Patient successfully extubated on 11/24/2024, and is currently saturating 93-94% on 3 L/min via nasal cannula; yesterday he was on 9L/min
Continue to wean down supplemental O2 flow rate to maintain SpO2 >90-94%
Given his thick neck with morbid obesity and excessive daytime sleepiness, suspect that he has obstructive sleep apnea which he has a history of but does not use a CPAP. If hypoxia persists and worsens especially while sleeping, would place him
onto CPAP; I will arrange for outpatient office follow-up to discuss sleep disordered breathing further and offer a sleep study
CXR from 11/26 shows worsening retrocardiac opacification that appears that he has pulmonary vascular congestion which increased compared to the day prior. 40 mg IV Lasix given to him on 11/26; CXR from today (11/27) appears improved - Continue to
reassess O2 needs and may need to give additional doses of Lasix depending on his SpO2 and WOB
prn nebulized bronchodilators - not currently bronchospastic
Encourage incentive spirometer as tolerated with goal use q1hr while awake
Pressors/antihypertensive/inotropes/diuretics will be provided as needed
Maintain MAP>65
Replete electrolytes with K>4, Mg>2
All chest tubes have been removed
Monitor hemoglobin
Monitor platelet count and coags
Transfuse blood products as needed to maintain Hb>8g/dL, plt>50k (given post-operative status)
Patient febrile on AM of 11/25; Also jump in white count which could be reactive due to recent surgery versus atelectasis, which also could have caused the fever. If patient has a recurrent fever then consider roberto culturing and also checking flu
swab given his generalized body discomfort and starting empiric broad-spectrum antibiotics
- His WBC has improved as of 11/27
- Procal yesterday AM was elevated, however he also developed an FELIX; continue to monitor for fevers as stated above
Monitor blood sugar to maintain euglycemia with goal BG 110-140
Insulin drip now off; recommend ISS to maintain BG at goal as above
Aspiration precautions
DVT prophylaxis
Early nutrition
Early mobilization
Patient is CVICU�telemetry status. Given his continued oxygen requirements as well as continued leukocytosis and improving FELIX, no additional recommendations at this time. Healthcare Interpreter/Pulmonary service will now sign off. Thank you for allowing us
to be involved in the care of this patient. Please reconsult if there are any additional questions/concerns, or if patient's respiratory status deteriorates.
Total time spent today was 36 minutes for this encounter. Time includes reviewing laboratory test/imaging results, reviewing pertinent medical records, obtaining and reviewing medical history, performing an appropriate exam, ordering medications,
tests and procedures. Time also includes documentation of this encounter, coordinating patient care and communicating with other healthcare professionals. Total time does not include separately billed tests performed on this date of service.
Data:
Intraoperative JOHN 11/24/2024:
Overall LVEF is approximately 55% with no RWMA.
Severe concentric left ventricular hypertrophy.
Severely dilated left atrium.
Moderately dilated right atrium.
Mild mitral regurgitation.
MR jet is central likely due to annular dilation.
Mid ascending aorta is dilated measuring 4.2 cm at the level of the RPA.
Subjective Dataa
Subjective Data
Date of Service:
Date of Service: November 27, 2024
Chief Complaint: Healthcare Interpreter Follow Up
Subjective:
Patient was seen and evaluated today at bedside. He feels much better today overall. Afebrile overnight. Currently on 3 L/min nasal cannula, saturating 94%. Heart rate 89. Denies chest pain, WILSON, nausea, fevers or chills.
Review of Systems
General: Other (Negative unless mentioned above)
Objective Data
Data Reviewed
Vital Signs / I&O / Oxygen:
Vital Signs
Temp Pulse Resp BP Pulse Ox
97.9 F 89 20 149/87 93
11/27/24 08:00 11/27/24 05:00 11/27/24 08:00 11/27/24 03:55 11/27/24 08:57
Intake and Output
11/26/24 11/27/24 11/28/24
06:59 06:59 06:59
Intake Total 558.8 / 558.8 380 / 380 370 / 370
Output Total 1130 / 1130 1555 / 1555 350 / 350
Balance -571.2 / -571.2 -1175 / -1175
SaO2 [CPAP/PSV] 92
SaO2 [SIMV] 93
SaO2 93
Nasal Cannula flow liters per 4
minute
Physical Exam
General: Respiratory Distress (negative), Comfortable, Chills (negative), Sweats (negative) and Other (NAD; obese male)
HEENT: Normocephalic, Anicteric and Other (thick neck)
Cardiovascular: S1-S2, Murmur (RAJEEV, grade II/ heard across precordium) and Peripheral Edema (negative)
Respiratory: Wheeze (negative), Crackles (Left base posteriorly), Rhonchi (negative), Non-Labored Respirations and Stridor (negative)
GI: Soft, Distended (Abdominal obesity), Non Tender and Normal Bowel Sounds
Neurology: Awake, Alert, Oriented and Tremors (negative)
Skin: Warm, Dry, Cyanosis (negative) and Jaundice (negative)
Labs/Micro/Reports
Lab Data
11/27/24 02:42
11/27/24 02:42
--- NOTE | 2024-11-27 08:41 | PTCARENOTE ---
Assumed care of patient from shift superintendent RN. AAO x 3, flat affect. SR on monitor. Epicardial wire insulated. 4 L NC 93%, Using IS to 500, and Using acapella independently. Lungs coarse bilaterally throughout. Harsh non productive cough.
Abdomen obese, with positive bowel sounds t/o, passing flatus. Voiding w/o issue. Surgical sites well approximated. Pulses palpable. Trace edema appreciated. Plan for day discussed.
--- NOTE | 2024-11-27 08:53 | W.PN.CARDCBS ---
Today's Communication / Plan
-
Continue cardiac meds
Overall picture improving
I have no objection to an additional IV Lasix dose today if primary team desires
We will follow with you
Impression / Plan
-
Primary Commercial Leasing Agent: initially seen by ATC at [facility]
Assessment:
HTN urgency
NSTEMI with MV CAD by cath at [facility] 11/22/24 including occluded RCA, culprit circ, and LAD disease
s/p CABG x4 CHESTER-diag/LAD, DUTCH-OM, Ao-SVG-PDA with rigid sternal fixation 11/24/24
Gout
Obesity
History of gastric bypass surgery 2015 or 2016
BRIANNA
FH of premature CAD
ECHO at [facility] 11/22/24: EF 55 to 60%, moderate concentric LVH, RV size mildly dilated, aortic sinuses dilated and ascending aorta dilated
Plan:
- Patient presented to [facility]/ with hypertensive urgency. Ruled in for NSTEMI and underwent cardiac catheterization 11/22/2024 at [facility] with multivessel coronary disease resulting in transfer to [facility]
Hospital for CABG evaluation
-s/p CABG x4 CHESTER-diag/LAD, DUTCH-OM, Ao-SVG-PDA with rigid sternal fixation 11/24/24
- Overall clinical picture is improved today with improving labs and oxygenation. I have no objection to 1 more one-time IV Lasix dose if necessary
- with post op resp insufficiency. slowly weaning supp O2, currently down to 6L. He is respiratory effort also appears poor and I encouraged increased spirometry and alert sensorium
-plan for asa, plavix given NSTEMI presentation. hgb 13.6
-EKG NSR
-BPs were elevated preop, norvasc and toprol were uptitrated. follow post op BP trends
-LDL 72. continue high intensity statin
- Appreciate excellent CT surgery care
-d/w CT surgery team
Progress Note - Commercial Leasing Agent
Subjective
Date of Service: November 27, 2024
He tells me his breathing is better today
Objective
Labs:
11/27/24 02:42
11/27/24 02:42
Labs
Hgb 12.3 g/dL (13.0-18.0) L 11/27/24 02:42
Hct 34.8 % (39.0-52.0) L 11/27/24 02:42
Plt Count 255 10^3/uL (130-400) 11/27/24 02:42
PT 15.7 Sec (11.4-14.6) H 11/24/24 13:22
INR 1.19 11/24/24 13:22
APTT 28.5 Sec (23.4-35.0) 11/24/24 13:22
Sodium 141 mmol/L (135-145) 11/27/24 02:42
Potassium 4.1 mmol/L (3.5-5.1) 11/27/24 02:42
BUN 45 mg/dl (9-20) H 11/27/24 02:42
Creatinine 1.3 mg/dL (0.7-1.3) 11/27/24 02:42
Glucose 105 mg/dl (70-99) H 11/27/24 02:42
Vital Signs and I&O:
Vital Signs
Temp Pulse Resp BP Pulse Ox
97.9 F 89 20 149/87 93
11/27/24 08:00 11/27/24 05:00 11/27/24 08:00 11/27/24 03:55 11/27/24 08:00
Vital Signs
Temp Pulse Resp BP Pulse Ox
97.9 F 89 20 149/87 93
11/27/24 08:00 11/27/24 05:00 11/27/24 08:00 11/27/24 03:55 11/27/24 08:00
Intake & Output
04/1811/26/24 11/27/24 11/28/24
06:59 06:59 06:59 06:59
Intake Total 501.7 / 515.0 558.8 / 558.8 380 / 380 370 / 370
Output Total 1345 / 1345 1130 / 1130 1555 / 1555 350 / 350
Balance -843.3 / -830.0 -571.2 / -571.2 -1175 / -1175
Physical Exam
Physical Exam
����Physical Exam
���������������������General:��no apparent distress, not acutely ill
���������������������������Neck:��supple. no meningeal signs. normal psoterior pharynx
������������������������
���������������������������Heart:��s1/s2 regular rate and rhythm, no murmur. equal radial pulses.
��������������������������Lungs: ��no acute respiratory distress. clear bilaterally
����������������������Abdomen:�normal bowel sounds. not tender. no CVAT
��������������������������Neuro:��alert and oriented. no focal neurological deficits
������������������������������Skin: ��no rash
�����������������������Psychiatric:�well kept. interactive and cooperative
�����������������������Extremities:��no edema. no calf tenderness. negative homans. good distal pulses
��
�
--- NOTE | 2024-11-27 10:28 | PTCARENOTE ---
Ambulated in hallway with RN on 4 L Oxygen. Tolerated well. Able to ambulate approx 200 feet. Oxygen reduced to 3 L Nc after ambulating maintaining a pulse of 94%. Vigorous chest PT preformed after. Resting in bed after.
[2024-11-27] MEDS: NSS IV (12:27)
--- NOTE | 2024-11-27 13:00 | PTCARENOTE ---
Ambulated approx 200 feet for second time today, with better pace and tolerance. Oxygen weaned to 3 L, pulse ox 93%. Harsh cough remains. IS encouraged. RT IJ cordis removed, hemostasis achieved. Assessment otherwise unchanged from prior.
--- NOTE | 2024-11-27 15:33 | PTCARENOTE ---
Ambulated entire loop around unit!!!!. Better spirits this afternoon. Continues with harsh non productive cough. Chest PT preformed again this afternoon. VSS. Will continue to monitor.
[2024-11-27] MEDS: LIPITOR 80 MG PO (16:48)
[2024-11-27] MEDS: DILAUDID 0.25 MG IV (17:58)
--- NOTE | 2024-11-27 18:10 | PTCARENOTE ---
C/o increased achiness/pain in RT chest /flank area from increased coughing /activity today. Dilaudid administered. Will monitor.
[2024-11-27] MEDS: LOPRESSOR 50 MG PO (20:26)
--- NOTE | 2024-11-27 20:30 | PTCARENOTE ---
Assumed care of patient at 1900. Patient found oob in chair at time of assessment with spouse at bedside. Patient is AOx4, follows commands appropriately, moves all extremities. Lung sounds are coarse and rhonci present throughout, patient has non
productive frequent harsh moist cough. saO2 99% on 2L via NC. Heart sounds are audible, SR on the monitor, normal palpable pulses, and no observable edema. V wires are present but insulated. Patient has active BS in all four quadrants of round obese
abdomen, no postop BM yet, voiding clear yellow in bathroom. Patient has sternal incision approx with surg adhesive SHERICE. There is slight oozing from inferior aspect and midpoint of incision. Small 4x4 gauze dressing in place that is CDI. R groin
puncture approx with surg adhesive ADJUNCT BUSINESS INSTRUCTOR. Rle incision approx with surg adhesive SHERICE. 4x4 gauze dressing over CT wounds that is CDI. R hand PIV available for intermittent infusion. Patient requested shower at start of shift. Assisted and monitored
patient through shower hygiene care. Back to bed without incident. Call tucker within reach.
[2024-11-28] VITALS (8 sets, daily range): BP systolic 119–164; BP diastolic 74–98; BMI 42.2
--- NOTE | 2024-11-28 | PTCARENOTE ---
Patient reassessed. O2 increased to 4L while patient sleeping. All other VSS. Patient oob to chair frequently throughout night. Call tucker within reach.
[2024-11-28] MEDS: ROXICODONE 5 MG PO ×3 (03:03→14:34)
[2024-11-28 05:30] LABS: Hematocrit 36.6 % (39.0-52.0); Hemoglobin 12.5 g/dL (13.0-18.0); Mean Corp Hgb Conc. 34.2 g/dL (33.0-37.0); Mean Corpuscular Hgb 30.9 pg (27.0-31.0); Mean Corpuscular Volume 90.4 fL (80.0-94.0); Mean Platelet Volume 9.2 fL (7.4-10.4); Platelet Count 322 10^3/uL (130-400); Red Blood Cell Count 4.05 10^6/uL (4.70-6.10); Red Cell Dist. Width 14.5 % (11.5-14.5)
--- NOTE | 2024-11-28 05:45 | W.PN.CT ---
Today's Communication / Plan
-
-pod #4
-no significant issues overnight
-BP starting to climb, valsartan starting today
-still with non productive cough, was on 2 L NC overnight but back to 4 L NC this AM with SPO2 93%, Using IS to 500 and flutter valve
-WBC trending down, remains without fever, observing off abx for now, O2 down to 4 L from midflow over the weekend
-Cr trending back down, given IV lasix 11/26 but held 11/27, 350/1300 cc UOP in 12/24 hrs
-current meds (ASA, Plavix, Lipitor, Lopressor 50 bid, Amio, valsartan 80 mg, Protonix, Mucinex, Vit C)
-encourage IS, OOB, chest PT, ambulate
Assessment / Plan
-
- NSTEMI/mv-CAD - s/p Cabg x 4, On pump (Singh- diag/lad; (Y off Singh) Stephanie- om; Ao-svg- pda); R EVH by Dr. Macias on 11/24/24, pod #4
- Intraop JOHN: preserved EF pre and post op. Small adelina, not clipped
- HTN
- HLD
- Class 3 Obesity
- S/p gastric sleeve 2015
- BRIANNA per pt, stopped using 8yrs ago
- Hx gout from HCTZ
- Non-smoker
- Acute postop blood loss anemia
- Acute postop respiratory insufficiency, likely d/t pain/splinting
- Acute postop atelectasis
- Acute postop hypovolemia with subsequent hypervolemia
- FELIX
Subjective
-
Date of Service: November 28, 2024
Objective Data
-
Lab Results
11/28/24 05:09
PT 15.7 Sec (11.4-14.6) H 11/24/24 13:22
INR 1.19 11/24/24 13:22
APTT 28.5 Sec (23.4-35.0) 11/24/24 13:22
Vital Signs
Vital Signs
Temp Pulse Resp BP Pulse Ox
98.4 F 90 20 145/78 94
11/27/24 23:00 11/28/24 03:00 11/27/24 23:00 11/28/24 00:03 11/28/24 02:00
CT Intake/Output/Weight
11/27/24 11/27/24 11/28/24
06:59 18:59 06:59
Intake Total 100 / 380 1110 / 1110
Output Total 725 / 1555 950 / 1300 350 / 1300
Balance -625 / -1175 160 / -190 -350 / -190
SaO2: 94
Physical Exam
-
General: Awake, Oriented and AOx3
Cardiovascular: Regular rate & rhythm, No Murmurs and No Rub
Respiratory: Equal, Rhonchi and Decreased Breath Sounds
Sternum: Stable
Incision: Clean, Dry and Intact
Extremities: No Edema and No Erythema
Data Reviewed
-
Lab Results: Results Reviewed
Medications: Active Meds Reviewed
Chest X-Ray: Report Reviewed and Image Reviewed
ECG: Report Reviewed
[2024-11-28 06:00] LABS: Blood Urea Nitrogen 30 mg/dl (9-20); Calcium 8.7 mg/dl (8.4-10.2); Carbon Dioxide 27 mmol/L (22-30); Chloride 107 mmol/L (98-107); Estimated Creatinine Clearance 118 ml/min; Glucose 100 mg/dl (70-99); Magnesium 2.9 mg/dl (1.6-2.3); Potassium 4.1 mmol/L (3.5-5.1); Sodium 144 mmol/L (135-145); eGFR > 60.00
--- NOTE | 2024-11-28 06:01 | PTCARENOTE ---
Patient reassessed. Given Kristen 5 for 5/10 sternal pain. Somewhat high blood pressures noted CT PEDIATRIC ASSOCIATE notified no new orders at this time patient will restart their valsartan today. AM labs obtained. Call tucker within reach.
[2024-11-28] MEDS: TYLENOL 1000 MG PO ×3 (06:37→21:08)
[2024-11-28] MEDS: BACTROBAN 2% OINTMENT 1 APPLIC NASAL (08:39)
[2024-11-28] MEDS: LOW STRENGTH ASPIRIN 81 MG PO (08:40)
[2024-11-28] MEDS: LOPRESSOR 50 MG PO ×2 (08:40→19:51)
[2024-11-28] MEDS: VITAMIN C 500 MG PO (08:40)
[2024-11-28] MEDS: DIOVAN 80 MG PO (08:40)
[2024-11-28] MEDS: NEURONTIN 100 MG PO ×3 (08:40→21:08)
[2024-11-28] MEDS: SENOKOT-S 1 TABLET PO ×2 (08:40→19:53)
[2024-11-28] MEDS: MUCINEX 1200 MG PO ×2 (08:40→19:51)
[2024-11-28] MEDS: PLAVIX 75 MG PO (08:40)
[2024-11-28] MEDS: LIDOCAINE 4% PATCH 1 PATCH TOPICAL (08:40)
[2024-11-28] MEDS: PACERONE 200 MG PO ×3 (08:40→21:08)
[2024-11-28] MEDS: PROTONIX 40 MG PO (08:40)
[2024-11-28] MEDS: NORVASC 5 MG PO (08:49)
[2024-11-28] MEDS: NSS IV (08:49)
[2024-11-28] MEDS: FLEXERIL 5 MG PO ×2 (08:49→17:58)
--- NOTE | 2024-11-28 08:50 | PTCARENOTE ---
Assumed care of patient at 0700. Pt is awake, alert, and oriented. Pt with complaints of sternal pain, PRN Roxicodone and Flexeril administered for relief. Pt remains SR with HR 80's-90's. BP 161/96 MAP 111, morning BP medications administered per
orders. Epicardial V wire in place, insulated. Pulse oximetry 90-92% on room air. Pt achieving 500-750 with IS, continued use encouraged. Pt tolerating PO diet. Voiding in bathroom without issue. Midsternal incision approximated and SHERICE. Pt
currently OOB in chair with at bedside and call tucker within reach.
--- NOTE | 2024-11-28 10:49 | W.PN.CARDCBS ---
Addendum entered and electronically signed by Shantanu Iraheta MD 11/28/24 19:40:
He has severe back pain at present, previous relief with Toradol otherwise no complaints
Meds reviewed
144/83, pulse 89, respiratory 18, afebrile, in distress, lungs relatively clear, discomfort worse with inspiration, rub anteriorly, obese, incisions intact, some edema,
Chest x-ray today elevated right hemidiaphragm, hazy in bases, cardiomegaly, poor inspiration
No recent echocardiogram
Hemoglobin 12.5, white count 9, BUN/creatinine 30 and 1.1, potassium 4.1
Impression:
Suspected pleuritis/pericarditis
Non-STEMI November 22
CABG times
Gout
Obesity
Prior gastric bypass
Obstructive sleep apnea
Plan:
Despite his discomfort he looks well.
Consider colchicine/Toradol, overall renal function is currently normal.
Check ECG in a.m.
Appreciate efforts of CT surgery
Original Note:
Today's Communication / Plan
-
Continue post op care
Agree w/ resuming valsartan, amlodipine
Impression / Plan
-
Primary Homogenizer Operator: initially seen by ATC at [facility]
Assessment:
HTN urgency
CAD
NSTEMI w/ MV CAD by cath at [facility] 11/22/24 including occluded RCA, culprit circ, and LAD disease
s/p CABG x4 (CHESTER-diag/LAD, DUTCH-OM, Ao-SVG-PDA) with rigid sternal fixation 11/24/24
Gout
Obesity
History of gastric bypass surgery 2015 or 2016
BRIANNA
FH of premature CAD
ECHO at [facility] 11/22/24: EF 55 to 60%, moderate concentric LVH, RV size mildly dilated, aortic sinuses dilated and ascending aorta dilated
Plan:
-Presented to [facility] 11/22 w/ HTN urgency. Ruled in for NSTEMI and underwent LHC at [facility] 11/22 w/ MV CAD. Transferred to [facility] and underwent CABG x4 as above on 11/24/2024.
-POD #4. Doing well overnight, ambulating the halls this AM without SOB or dizziness. No longer on supplemental O2.
-Afebrile, WBC downtrending. s/p IV lasix x 1 on 11/26.
-Creat trending back down to 1.1 on 11/28. Weight down to 311 lbs.
-Continue IS, PT
-Continue aspirin, plavix. Hgb stable at 12.5.
-BP rising, agree w/ resuming valsartan and amlodipine. Continue to follow.
-LDL 72, continue Lipitor 80mg daily, new this admission.
-Continue post-op care
Progress Note - Homogenizer Operator
Subjective
Date of Service: November 28, 2024
Feeling well. Tired after walking the halls, but no SOB, chest pain, or dizziness.
Objective
Labs:
11/28/24 05:09
11/28/24 05:09
Labs
Hgb 12.5 g/dL (13.0-18.0) L 11/28/24 05:09
Hct 36.6 % (39.0-52.0) L 11/28/24 05:09
Plt Count 322 10^3/uL (130-400) D 11/28/24 05:09
PT 15.7 Sec (11.4-14.6) H 11/24/24 13:22
INR 1.19 11/24/24 13:22
APTT 28.5 Sec (23.4-35.0) 11/24/24 13:22
Sodium 144 mmol/L (135-145) 11/28/24 05:09
Potassium 4.1 mmol/L (3.5-5.1) 11/28/24 05:09
BUN 30 mg/dl (9-20) H 11/28/24 05:09
Creatinine 1.1 mg/dL (0.7-1.3) 11/28/24 05:09
Glucose 100 mg/dl (70-99) H 11/28/24 05:09
Vital Signs and I&O:
Vital Signs
Temp Pulse Resp BP Pulse Ox
97.5 F 88 18 161/96 91
11/28/24 08:00 11/28/24 08:35 11/28/24 08:00 11/28/24 08:35 11/28/24 08:30
Vital Signs
Temp Pulse Resp BP Pulse Ox
97.5 F 88 18 161/96 91
11/28/24 08:00 11/28/24 08:35 11/28/24 08:00 11/28/24 08:35 11/28/24 08:30
Intake & Output
11/26/24 11/27/24 11/28/24 11/29/24
06:59 06:59 06:59 06:59
Intake Total 558.8 / 558.8 380 / 380 1110 / 1110
Output Total 1130 / 1130 1555 / 1555 1575 / 1575 225 / 225
Balance -571.2 / -571.2 -1175 / -1175 -465 / -465 -225 / -225
Physical Exam
Physical Exam
GEN: No distress, awake, alert, oriented x3
HEENT: supple, anicteric, mmm
LUNGS: CTA b/l, no wheezes/rales
CV: Reg, S1/S2, no murmur
EXT: No clubbing, cyanosis, or edema
NEURO: Gross non-focal
SKIN: Warm, dry, no rash
--- NOTE | 2024-11-28 11:06 | CM ---
Chart reviewed. Patient is independent of ADLS, lives with his and 2 children () in a 2 [facility], 2 EB, 0 DME. Plan is for the patient to return home with CT Transitional RN. CM to follow
--- NOTE | 2024-11-28 13:00 | PTCARENOTE ---
Pt remains on room air, pulse oximetry 90%. Pt ambulating around unit without issue.
[2024-11-28] MEDS: DILAUDID 0.25 MG IV (17:17)
[2024-11-28] MEDS: LASIX 20 MG IV (17:17)
[2024-11-28] MEDS: LIPITOR 80 MG PO (17:17)
--- NOTE | 2024-11-28 17:30 | PTCARENOTE ---
Pt with increased pain, PRN pain medications administered. Pt remains SR with HR 80's. BP 144/83 MAP 100. Remains on room air, pulse oximetry 93%.
[2024-11-28] MEDS: TORADOL 15 MG IV (18:22)
[2024-11-28] MEDS: COLCHICINE 0.3 MG PO (18:22)
--- NOTE | 2024-11-28 19:20 | PTCARENOTE ---
Pt with increased pain, PRN pain medications administered. Pt remains SR with HR 80's. BP 144/83 MAP 100. Remains on room air, pulse oximetry 93%.
--- NOTE | 2024-11-28 20:00 | PTCARENOTE ---
Assumed care of pt from previous rn. Pt is awake, alert, and oriented. VSS, Pt remains SR with HR 80's-90's.Epicardial V wire in place, insulated. Pulse ox 90-92% on room air. Pt achieving 500-750 with IS, continued use encouraged. Pt tolerating PO
diet. Voiding in bathroom without issue. all surgical incisions intact. Pt currently OOB in chair with at bedside and call tucker within reach.
[2024-11-28] MEDS: KCL 20 MEQ PO (21:07)
[2024-11-29] VITALS (7 sets, daily range): BP systolic 117–163; BP diastolic 66–90; PULSE 86; O2SAT 95; BMI 42.2
--- NOTE | 2024-11-29 | PTCARENOTE ---
Assessment remains unchanged, VSS, pt resting comfortably in bed.
[2024-11-29] MEDS: ROXICODONE 5 MG PO (01:38)
--- NOTE | 2024-11-29 04:34 | W.PN.CT ---
Today's Communication / Plan
-
-No major issues overnight. Hemodynamically and neurologically stable
-Noted to have mildly elevated right hemidiaphragm
-Weaned off O2 with O2sats 89-92% on RA. Denies SOB with ambulation
-Encourage use of IS, pulmonary toilet
-Colchicine started per Cardiology for suspected pericarditis. F/U EKG
-Cont. current meds ((ASA, Plavix, Lipitor, Lopressor 50 bid, Amio, valsartan 80 mg, Protonix, Mucinex)
-OOB into chair/Ambulate
-Cut temporary v wire
-Home today
Assessment / Plan
-
- NSTEMI/mv-CAD - s/p Cabg x 4, On pump (Singh- diag/lad; (Y off Singh) Stephanie- om; Ao-svg- pda); R EVH by Dr. Macias on 11/24/24, pod #5
- Intraop JOHN: preserved EF pre and post op. Small adelina, not clipped
- HTN
- HLD
- Class 3 Obesity
- S/p gastric sleeve 2015
- BRIANNA per pt, stopped using 8yrs ago
- Hx gout from HCTZ
- Non-smoker
- Acute postop blood loss anemia
- Acute postop respiratory insufficiency, likely d/t pain/splinting
- Acute postop atelectasis
- Acute postop hypovolemia with subsequent hypervolemia
- FELIX
Discussed patient care with: Cardiology, Nursing, Respiratory Therapy, Pharmacy and Care Team
Subjective
-
Date of Service: November 29, 2024
Pt c/o mild incisional pain, otherwise feels well. Ambulating halls without difficulty
Objective Data
-
Lab Results
11/28/24 05:09
11/28/24 05:09
PT 15.7 Sec (11.4-14.6) H 11/24/24 13:22
INR 1.19 11/24/24 13:22
APTT 28.5 Sec (23.4-35.0) 11/24/24 13:22
Vital Signs
Vital Signs
Temp Pulse Resp BP Pulse Ox
98.3 F 77 20 139/79 90
11/29/24 00:00 11/29/24 03:00 11/29/24 00:00 11/29/24 00:05 11/29/24 03:00
CT Intake/Output/Weight
11/28/24 11/28/24 11/29/24
06:59 18:59 06:59
Output Total 625 / 1575 675 / 1125 450 / 1125
Balance -625 / -465 -675 / -1125 -450 / -1125
SaO2: 91 (RA)
Physical Exam
-
General: Awake, Oriented and AOx3
Cardiovascular: Regular rate & rhythm, No Murmurs, No Rub and No Gallop
Respiratory: Decreased Breath Sounds (at bases, otherwise clear)
Sternum: Stable
Incision: Clean, Dry, Intact and Dressing Intact
Extremities: Other (+trace edema)
Data Reviewed
-
Lab Results: Results Reviewed
Medications: Active Meds Reviewed
Chest X-Ray: Report Reviewed and Image Reviewed
ECG: Report Reviewed and Image Reviewed
[2024-11-29] MEDS: TYLENOL 1000 MG PO ×2 (05:05→10:03)
--- NOTE | 2024-11-29 05:05 | PTCARENOTE ---
VSS, EKG obtained, assessment remains unchanged
--- NOTE | 2024-11-29 08:00 | PTCARENOTE ---
Assumed care of pt from previous rn. walking rounds completed. Pt resting in bed. Min assist to get oob into bathroom. AAOx4. VSS. SR HR 90. V wire insulated. 93% on room air. 750 with IS. + appetite. BRP. all surgical incisions intact. at
bedside. ordering breakfast. reports pain to be under control. hopeful d/c today,
--- NOTE | 2024-11-29 08:17 | W.PN.CARDCBS ---
Addendum entered and electronically signed by Shantanu Harrell MD 11/29/24 11:27:
Attending addendum: Patient seen and examined. PA note reveiwed and findings confirmed by me. He is feeling well today. Largely without complaints. Planned is for discharge later today and will followup with ATC
Original Note:
Today's Communication / Plan
-
continue post op care
uptitration of BP control
OP follow up with ATC
Impression / Plan
-
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
Assessment:
HTN urgency
CAD
NSTEMI w/ MV CAD by cath at [facility] 11/22/24 including occluded RCA, culprit circ, and LAD disease
s/p CABG x4 (CHESTER-diag/LAD, DUTCH-OM, Ao-SVG-PDA) with rigid sternal fixation 11/24/24
Gout
Obesity
History of gastric bypass surgery 2015 or 2017
BRIANNA
FH of premature CAD
ECHO at [facility] 11/22/24: EF 55 to 60%, moderate concentric LVH, RV size mildly dilated, aortic sinuses dilated and ascending aorta dilated
Plan:
-Presented to [facility] 11/22 w/ HTN urgency. Ruled in for NSTEMI and underwent LHC at [facility] 11/22 w/ MV CAD. Transferred to [facility] and underwent CABG x4 as above on 11/24/2024.
-doing well.
-remains with pulse ox in 89-92% range. follow. continue IS
-weight back down to preop weight.
-uptitrating BP control - currently on lopressor 50mg BID, valsartan 160mg daily
-had evidence of post op pericarditis by EKG. continue colchicine
-Continue aspirin, plavix. Hgb stable
-LDL 72, continue Lipitor 80mg daily, new this admission.
-Continue post-op care
-for possible DC today
-OP follow up with ATC upon DC
-d/w patient and at bedside. d/w CT AQUACULTURIST.
Progress Note - Unit Assembler
Subjective
Date of Service: November 29, 2024
reports some overall soreness. no breathing issues.
Objective
Labs:
11/28/24 05:09
11/28/24 05:09
Labs
Hgb 12.5 g/dL (13.0-18.0) L 11/28/24 05:09
Hct 36.6 % (39.0-52.0) L 11/28/24 05:09
Plt Count 322 10^3/uL (130-400) D 11/28/24 05:09
PT 15.7 Sec (11.4-14.6) H 11/24/24 13:22
INR 1.19 11/24/24 13:22
APTT 28.5 Sec (23.4-35.0) 11/24/24 13:22
Sodium 144 mmol/L (135-145) 11/28/24 05:09
Potassium 4.1 mmol/L (3.5-5.1) 11/28/24 05:09
BUN 30 mg/dl (9-20) H 11/28/24 05:09
Creatinine 1.1 mg/dL (0.7-1.3) 11/28/24 05:09
Glucose 100 mg/dl (70-99) H 11/28/24 05:09
Vital Signs and I&O:
Vital Signs
Temp Pulse Resp BP Pulse Ox
98.3 F 82 20 158/77 90
11/29/24 05:05 11/29/24 06:00 11/29/24 05:05 11/29/24 05:03 11/29/24 05:05
Vital Signs
Temp Pulse Resp BP Pulse Ox
98.3 F 82 20 158/77 90
11/29/24 05:05 11/29/24 06:00 11/29/24 05:05 11/29/24 05:03 11/29/24 05:05
Intake & Output
11/27/24 11/28/24 11/29/24 11/30/24
07:59 07:59 07:59 07:59
Intake Total 380 / 750 1110 / 1110
Output Total 1555 / 1905 1575 / 1575 1275 / 1275
Balance -1175 / -1155 -465 / -465 -1275 / -1275
Physical Exam
Physical Exam
GEN: No distress, awake, alert, oriented x3. sitting in chair. obese
HEENT: supple, anicteric, mmm, eomi
LUNGS: CTA B/L, no wheezes
CV: Reg, S1/S2, no murmur
ABD: soft, BS+, NT/ND
EXT: No cyanosis, clubbing, edema
NEURO: Gross non-focal
SKIN: Warm, pink, dry. No rash
[2024-11-29] MEDS: DIOVAN 160 MG PO (08:28)
[2024-11-29] MEDS: MUCINEX 1200 MG PO (08:29)
[2024-11-29] MEDS: LOPRESSOR 50 MG PO (08:29)
[2024-11-29] MEDS: PROTONIX 40 MG PO (08:29)
[2024-11-29] MEDS: NEURONTIN 100 MG PO (08:30)
[2024-11-29] MEDS: LOW STRENGTH ASPIRIN 81 MG PO (08:30)
[2024-11-29] MEDS: PLAVIX 75 MG PO (08:30)
[2024-11-29] MEDS: COLCHICINE 0.3 MG PO (08:31)
[2024-11-29] MEDS: PACERONE 200 MG PO (08:31)
[2024-11-29] MEDS: NORVASC 5 MG PO (08:31)
[2024-11-29] MEDS: VITAMIN C 500 MG PO (08:31)
[2024-11-29] MEDS: SENOKOT-S PO (08:33)
[2024-11-29] MEDS: NSS IV (08:33)
[2024-11-29] MEDS: LIDOCAINE 4% PATCH TOPICAL (08:33)
--- NOTE | 2024-11-29 11:22 | CM ---
Chart reviewed. Patient is independent of ADLS, lives with his and 2 children (), in a 2 [facility], 2 EB, 0 DME. Plan is for the patient to return home. CM to follow
--- NOTE | 2024-11-29 12:32 | W.DCSUMMARY ---
Discharge Summary
Discharge Data
Date of Admission: 11/22/24
Date of Discharge: 11/29/24
Total time spent discharging patient (in min): 45
-
Pending Results: No
Hospital Course
Primary care physician:
Dr. Parsons
Outpatient cheese tester:
Dr. Berrios
Inpatient consultants:
DCA, resident manager
Procedures:
1. Coronary artery bypass x 4 with rigid sternal fixation
Primary Diagnosis:
1. Multivessel coronary disease
Secondary Diagnoses:
1. Uncontrolled hypertension
2. Obesity s/p gastric sleeve
3. Gout
4. Postop atelectasis
5. Acute postop hypoxia
6. Acute postop hypervolemia
HPI: 49-year-old male that presented to [facility] with complaints of chest pain and hypertension ruled in for a NSTEMI and was transferred to [facility] for a left heart cath. He was found to have multivessel disease and was
brought to the CV OR by Dr. Macias for CABG.
Hospital course: Patient was transferred from [facility] on 11/23 after found to have an NSTEMI and multivessel disease. He was transferred to [facility] for CT surgery. Patient was taken to the OR on by Dr. Macias and
postoperatively returned to the CVICU for the remainder of his recovery. He was on Levophed, Precedex, and insulin. Patient initially had hypoxia upon arrival and PEEP along with FiO2 was increased. Patient's oxygenation improved Precedex was
weaned off and ventilator support was weaned and he was subsequently extubated by 1644. Patient overnight had hypoxia and was transition to mid flow. On 11/25 postoperative day 1 patient was weaned off Levophed and mid flow was weaned down to 6 L
nasal cannula. Mediastinal chest tubes were removed and pleural chest tubes were pulled. Patient was noted to have an FELIX due to the rising creatinine. Patient was started on low-dose beta-lissa which she tolerated well and was uptitrated to 25
mg twice daily. On 11/26 postoperative day 2 patient was again transition back up on mid flow to 12 L chest x-ray showed vascular congestion and he was diuresed with 40 mg of IV Lasix and creatinine peaked at 1.8. Pleural chest tubes were removed.
On 11/27 postoperative day 3 patient's oxygen was weaned down to 4 L nasal cannula incentive spirometry and Acapella was encouraged. He did not receive diuresis on this day. 11/28 postoperative day 4 patient was weaned down to room air however sats
were 90 to 91%. Patient was kept inpatient he was given 20 mg of IV Lasix and started on a 30-day course of colchicine. Patient continued to be hypertensive he was resumed on his home dose of amlodipine and losartan and 80 mg was resumed. 2-view
CXR remain unchanged. On 11/29 postoperative day 5 patient remained on room air with oxygen sats 93 to 95%. Losartan was again uptitrated to 120 mg. Patient was deemed stable for discharge home.
Home medication changes:
See below
Discharge Plan
-
Patient Disposition: Home (Routine Discharge)
Discharge Diagnosis/Procedures: CABG x 4
Condition: Good
Diet: Low Cholesterol, Low Sodium and Diabetic, Carb Controlled
Activity: No strenuous activity
Driving Restrictions: Not until seen by your Dr
Bathing Restrictions: OK to Shower
Other Services: Cardiac Rehab
Specialty Instructions: Weigh Daily- Call MD for wt gain/loss 3 lbs overnight/5 lbs in 1 week
Activity Restrictions/Additional Instructions:
ACTIVITY:
-No strenuous activity: no heavy lifting, pushing, pulling anything over 15 pounds for one month
-continue to use stairs as tolerated
DRIVING RESTRICTIONS:
-No driving for one month or until approved by your surgeon
WOUND CARE:
-Shower daily. Use soap & water.
-No lotions, creams or powders on incision area.
DIET:
-continue a low fat/low cholesterol diet.
-IF you are diabetic, continue carb controlled diet.
CARDIAC REHAB:
-Please make appointment to start in 5-6 weeks with your local hospital program. (See Cardiac Rehabilitation Discharge Booklet).
SPECIALTY INSTRUCTIONS:
-Weigh yourself daily. Call your physician for any weight gain/loss of 3 lbs overnight or 5 lbs in one week.
-REPORT any clicking noise or uneven appearance of your sternum to your surgeon immediately.
-If you smoke, you are instructed to quit. The [place] smoking hotline phone number is 545-930-1977
Referrals:
CT Transitional Care Nurse [Outside] (The Cardiothoracic Transitional Care Nurse will call you to set up a visit in 1-2 days.)
[facility]. Cardiac Rehab [Outside] - 01/03/25 8:00 am
(Cardiac Rehab Orientation appointment and� First Exercise appointment is on Thursday01/03/25 at 8am
The Cardiac Rehab gym is located on the first floor of the [facility].)
Gualberto Torres MD [Active] - in two to three weeks (to discuss sleep disordered breathing; further assess oxygen levels)
Zander Parsons MD [Family Provider] -
Pinky Berrios MD [Active] - 01/12/25 11:45 am
Carlota Steel CRNP [Specified Professional Personl] - 12/21/24 1:45 pm
Additional Discharge Medication Instructions: Please note that your valsartan dose has decreased. do not increase until directed by a medical professional
You will be on plavix for one year total
Only continue colchicine for 30 days after surgery
Prescriptions:
New
cyclobenzaprine 10 mg Tablet
5 mg PO Q8HPRN PRN (Reason: muscle spasm) Qty: 30 0RF
atorvastatin 80 mg Tablet
80 mg PO QPM Qty: 30 1RF
clopidogrel 75 mg Tablet
75 mg PO DAILY Qty: 90 3RF
colchicine 0.6 mg Tablet
0.3 mg PO DAILY Qty: 30 0RF
metoprolol tartrate 75 mg tablet
75 mg PO BID Qty: 60 0RF
acetaminophen 325 mg Tablet
650 mg PO Q4HPRN PRN (Reason: mild pain,headache,temp >101F ) Qty: 0 0RF
pantoprazole 40 mg Tablet,Delayed Release (Dr/Ec)
40 mg PO DAILY Qty: 90 3RF
aspirin 81 mg Tablet,Chewable
81 mg PO DAILY Qty: 0 0RF
gabapentin 100 mg Capsule
100 mg PO TID Qty: 60 0RF
oxycodone 5 mg Tablet
5 mg PO Q6HPRN PRN (Reason: moderate to severe pain) Qty: 20 0RF
Continued
amlodipine 5 mg Tablet
5 mg PO DAILY
Changed
valsartan 320 mg Tablet
160 mg PO DAILY Qty: 0 0RF
Held
allopurinol 100 mg Tablet
100 mg PO DAILY
Hold Instructions: not until instructed by a medical professional
Discharge Orders:
Discharge Patient (As Directed); Ordered 11/29/24
Ordered By: Anni Miranda
Care Plan Goals
Care Plan Goals:
Problem: Readiness for enhanced knowledge related to diagnosis and treatment plan
Goal: Understand your diagnosis and treatment plan needs, including medications if applicable.
Instructions: Know your diagnosis, underlying causes and treatment plan options, including medications if applicable. Consult with your health care team to learn about your diagnosis and treatment plan, including medications if applicable.
Discharge Date and Time
Print Language: MOLDOVAN
--- NOTE | 2024-11-29 13:35 | PTCARENOTE ---
wires cut by WIND POWER PROJECT MANAGER bedside. tele monitor d/c'd. iv d/c'd. left via wheelchair with all belongings.
--- NOTE | 2024-11-30 08:50 | PN.CDI ---
CDI
- -
CDI:
Physician Documentation Request
Admit Date: 11/22/24 14:[address] Surgical Team,
Please review the following and provide your response in the progress notes.
Clinical Indicators:
11/25 RN Note: 'This RN entered patient's room multiple times with HFNC off. Patient would desat into high 70s without oxygen. Patient reported they are unable to tolerate HFNC d/t 'pressure'. Patient placed back on MFNC at 15L saO2 at 91-92%.'
Pt remained on NC-MFNC 6-15L from 11/25-11/26
Clarify which of the following accurately represents the patient's respiratory status following surgery:
Acute respiratory failure
Hypoxia only
Other
Additional information for Respiratory Failure:
Recognized criteria for Respiratory Failure (Source: [facility] Jun 2013)
ABGs: (1 or more) Symptoms Indicate:
1. p)2 <60 or RA SPO2 <91% on RA 1. Tachypnea, SOB, dyspnea 1. Type as:
2. pCO2 50 and pH <7.35 2. Use of accessory muscles a. Hypoxic
3. pO2 decrease of pCO2 increase by 3. Pallor or cyanosis b. Hypercapnic
10 mmHg from baseline if known 4. Anxiety or restlessness 2. If due to procedure or due to another cause
5. Unable to speak in full sentences
Supplemental O2 of > 40% Intubation is not required
Use of terms such as suspected, likely, concern for, or probable (associated with a specific diagnosis that is being evaluated, monitored, or treated as if it exists) are acceptable and can be coded in the inpatient setting, when documented at the
time of discharge.
Thank you,
Arabella Silverio RN, BSN
CDI Specialist
[facility]
Please use your independent medical judgment in providing your response.
--- NOTE | 2024-11-30 09:18 | W.PN.UPDATE ---
Addendum entered and electronically signed by GERMAN Lyman 11/30/24 10:40:
CDI query:
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
Original Note:
Update Note
Progress Note Update
CDI query:
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
== END 2024-11-29 14:40 | disposition home or self-care (01) | DRG 235 ==
LOC: CVICU 14:17
PROVIDERS: Anesthesiology; Nurse Practitioner; Physician Assistant; Physician Assistant Medical; ADMITTING PHYSICIAN Thoracic Surgery (Cardiothoracic Vascular Surgery); ATTENDING PHYSICIAN Thoracic Surgery (Cardiothoracic Vascular Surgery); CONSULT PHYSICIAN Internal Medicine Critical Care Medicine; FAMILY PHYSICIAN Family Medicine; OTHER PHYSICIAN Internal Medicine Interventional Cardiology
PROC: 02100Z8 Bypass Coronary Artery, One Artery from Right Internal Mammary, Open Approach (ICD-10-PCS; 2024-11-24)
PROC: 5A1221Z Performance of Cardiac Output, Continuous (ICD-10-PCS; 2024-11-24)
PROC: 021009W Bypass Coronary Artery, One Artery from Aorta with Autologous Venous Tissue, Open Approach (ICD-10-PCS; 2024-11-24)
PROC: 06BP4ZZ Excision of Right Saphenous Vein, Percutaneous Endoscopic Approach (ICD-10-PCS; 2024-11-24)
PROC: 02110Z9 Bypass Coronary Artery, Two Arteries from Left Internal Mammary, Open Approach (ICD-10-PCS; 2024-11-24)
PROC: B24BZZ4 Ultrasonography of Heart with Aorta, Transesophageal (ICD-10-PCS; 2024-11-24)
DX: I21.4 Non-ST elevation (NSTEMI) myocardial infarction (principal); J96.01 Acute respiratory failure with hypoxia; Z68.41 Body mass index [BMI] 40.0-44.9, adult; J98.11 Atelectasis; N17.9 Acute kidney failure, unspecified; I31.9 Disease of pericardium, unspecified; D62 Acute posthemorrhagic anemia; E87.70 Fluid overload, unspecified; J98.6 Disorders of diaphragm; E86.1 Hypovolemia; I25.10 Atherosclerotic heart disease of native coronary artery without angina pectoris; I25.82 Chronic total occlusion of coronary artery; M10.9 Gout, unspecified; E66.813 Obesity, class 3; I10 Essential (primary) hypertension; G47.33 Obstructive sleep apnea (adult) (pediatric); I16.0 Hypertensive urgency; R73.03 Prediabetes; I34.0 Nonrheumatic mitral (valve) insufficiency; Z82.49 Family history of ischemic heart disease and other diseases of the circulatory system; Z98.84 Bariatric surgery status
CPT/HCPCS: 71045; 71046; 71250; 80048; 80053; 80061; 81003; 81015; 82248; 82330; 82565; 82805; 82947; 82962; 83036; 83735; 83880; 84100; 84132; 84145; 84302; 84484; 84520; 85014; 85018; 85027; 85049; 85610; 85730; 86850; 86900; 86901; 86920; 93005; 93312; 93320; 93325; 93880; 93923; 93931; 94002; 94640

== ENCOUNTER → 2025-01-31 14:10 | Outpatient (REF) | payer BC, SELFPAY | LOC: DHSLP 14:10 | PROVIDERS: ATTENDING PHYSICIAN Internal Medicine Critical Care Medicine; FAMILY PHYSICIAN Internal Medicine Critical Care Medicine | DX: G47.33 Obstructive sleep apnea (adult) (pediatric) (principal) | CPT/HCPCS: 95800 ==